=== PATIENT | female | born 1995 | race Caucasian/White ===

== ENCOUNTER 2020-01-15 23:30 | Observation (INO) | payer MEDICAID, SELFPAY ==
--- NOTE | 2020-01-15 23:32 | PC.NURSE ---
pt arrived by pov with complaint of abdominal cramping for 4 hours-states she thinks she is in labor. thinks she lost her mucus plug-ob called and is aware of pt. taken to ob in wheelchair
[2020-01-16 00:01] VITALS: BP 142/74; PULSE 88
--- NOTE | 2020-01-16 00:05 | OBADM ---
This patient, Eugenie Tamayo, admitted to the OB room OB Post 115 for observation. Patient/family oriented to hospital policies and general routines including ID bracelet, bed and alarms, visiting hours, pain management, procedures, bathroom and other care routines, personal items, smoking policy, room service/diet, and visiting hours. Patient/Family are encouraged to report perceived risks to care and to ask questions if they do not understand what they are told or what they should do.
[2020-01-16 00:16] VITALS: BP 144/75; PULSE 94
[2020-01-16 00:31] VITALS: BP 136/71; PULSE 89
[2020-01-16 00:46] VITALS: BP 136/73; PULSE 89
[2020-01-16 01:19] LABS: Add Urine Microscopic? YES; Appearance Urine Clear (Clear); Bacteria Urine Trace /hpf; Bilirubin Urine Negative (Negative); Blood Urine Negative (Negative); Color Urine Yellow (Yellow); Glucose Urine UA Negative (Negative); Ketones Urine Negative (Negative); Leukocyte Esterase Ur Negative LEU/UL (NEGATIVE); Mucus Urine Heavy /lpf; Nitrate Urine Negative (Negative); Protein Urine 1+ mg/dL (Negative); RBC Urine 0-2 /hpf (0-2); Specific Grav Ur 1.018 (1.001-1.035); Squamous Epithelial Cell Urine Occasional /hpf (Few); WBC Urine 0-3 /hpf (0-3)
[2020-01-16 01:41] LABS: Basophils Absolute Auto 0.1 K/mm3 (0.0-0.1); Basophils Percent Auto 0.3 % (0.2-1.2); Eosinophils Absolute Auto 0.2 K/mm3 (0-0.3); Eosinophils Percent Auto 1.1 % (0-4.4); Hematocrit 33.8 % (37.0-47.0); Hemoglobin 10.9 g/dL (12.0-15.0); Immature Granulocyte Absolute 0.15 K/mm3 (0.00-0.031); Lymphocytes Absolute Auto 1.96 K/mm3 (0.9-3.2); Lymphocytes Percent Auto 13.4 % (18.3-44.2); Mean Corpuscular HGB Conc 32.2 g/dl (32-36); Mean Corpuscular Hemoglobin 28.8 pg (26-34); Mean Corpuscular Volume 89.2 fl (80-100); Mean Platelet Volume 10.3 fl (7.4-10.4); Monocytes Absolute Auto 0.7 K/mm3 (0.1-0.6); Monocytes Percent Auto 4.8 % (2.6-8.5); Neutrophils Absolute Auto 11.6 K/mm3 (1.3-6.7); Neutrophils Percent Auto 79.4 % (45.5-73.1); Platelet Count Result 250 k/mm3 (150-375); Red Blood Count 3.79 M/mm3 (4.2-5.4); Red Cell Distribution Width 13.2 % (11.5-14.5); White Blood Count 14.6 K/mm3 (4.5-10.0)
[2020-01-16 02:03] LABS: NT Pro B Type Natriuretic Pept 50 PG/ML (5-100)
[2020-01-16 02:17] LABS: Blood Urea Nitrogen 5 mg/dL (7-17); Carbon Dioxide 22 mmol/L (22-30); Chloride 104 mmol/L (98-107); Estimated Glomerular Filt Rate > 60; Glucose 93 mg/dL (65-105); Potassium 3.9 mmol/L (3.4-5.0); Sodium 133 mmol/L (137-145)
--- NOTE | 2020-02-11 09:00 | PM.OBTRLD ---
OB - Triage/Final Diagnosis Visit Information Comments/Additional reasons for admission: rule out rupture of membranes Evaluation Laboratory results: Laboratory Tests 01/16/20 01/16/20 01/16/20 01:03 01:30 01:30 WBC 14.6 H RBC 3.79 L Hgb 10.9 L Hct 33.8 L MCV 89.2 MCH 28.8 MCHC 32.2 RDW 13.2 Plt Count 250 MPV 10.3 Immature Gran % (Auto) 1.0 H Neut % (Auto) 79.4 H Lymph % (Auto) 13.4 L [place] % (Auto) 4.8 Eos % (Auto) 1.1 Baso % (Auto) 0.3 Lymph # (Auto) 1.96 [place] # (Auto) 0.7 H Eos # (Auto) 0.2 Baso # (Auto) 0.1 Abs Immat Gran (auto) 0.15 H Absolute Neuts (auto) 11.6 H Absolute Nucleated RBC 0.0 Nucleated RBC % 0.0 Sodium Potassium Chloride Carbon Dioxide BUN Creatinine Estim Creat Clear Calc Estimated GFR Glucose Calcium NT-Pro-B Natriuret Pep 50 Urine Color Yellow Urine Appearance Clear Urine pH 6.0 Ur Specific [place] 1.018 Urine Protein 1+ H Urine Glucose (UA) Negative Urine Ketones Negative Ur Blood (Man) Negative Urine Nitrate Negative Urine Bilirubin Negative Urine Urobilinogen 2.0 H Ur Leukocyte Esterase Negative Urine RBC 0-2 Urine WBC 0-3 Ur Squamous Epith Cells Occasional Urine Bacteria Trace Urine Mucus Heavy H 01/16/20 01:30 WBC RBC Hgb Hct MCV MCH MCHC RDW Plt Count MPV Immature Gran % (Auto) Neut % (Auto) Lymph % (Auto) [place] % (Auto) Eos % (Auto) Baso % (Auto) Lymph # (Auto) [place] # (Auto) Eos # (Auto) Baso # (Auto) Abs Immat Gran (auto) Absolute Neuts (auto) Absolute Nucleated RBC Nucleated RBC % Sodium 133 L Potassium 3.9 Chloride 104 Carbon Dioxide 22 BUN 5 L Creatinine 0.50 L Estim Creat Clear Calc Not Reportable Estimated GFR > 60 Glucose 93 Calcium 9.0 NT-Pro-B Natriuret Pep Urine Color Urine Appearance Urine pH Ur Specific [place] Urine Protein Urine Glucose (UA) Urine Ketones Ur Blood (Man) Urine Nitrate Urine Bilirubin Urine Urobilinogen Ur Leukocyte Esterase Urine RBC Urine WBC Ur Squamous Epith Cells Urine Bacteria Urine Mucus
== END 2020-01-16 02:34 | disposition home or self-care (01) ==
PROVIDERS: Admitting Provider Obstetrics & Gynecology; Visit Provider Obstetrics & Gynecology
DX: Z03.79 Encounter for other suspected maternal and fetal conditions ruled out (principal)
CPT/HCPCS: 36415; 80048; 81001; 83880; 85025; G0378; G0379

== ENCOUNTER 2020-01-17 05:46 | Outpatient (CLI) | payer MEDICAID, SELFPAY ==
[2020-01-17 06:17] VITALS: BMI 43.0
[2020-01-17 07:00] LABS: Creatinine Urine 99.4 mg/dL
[2020-01-17 07:06] LABS: Creatinine 24 Hour Urine 1.4 gm/24 (0.8-1.8); Total Volume 24 Hour Urine 1500 ml
[2020-01-17 07:16] LABS: Collection Time Urine 24 HOURS
[2020-01-17 07:19] LABS: Total Volume 24 Hour Urine 1500 ml
[2020-01-17 07:29] LABS: Creatinine Clearance Urine 174.7 ml/min (75-125); Creatinine Urine 98.9 mg/dL; Patient Weight 235 Lbs; Total Protein Urine 24 Hr 165 MG/DAY (28-141); Total Protein Urine Random 11 mg/dL
== END 2020-01-17 05:47 | disposition home or self-care (01) ==
PROVIDERS: Visit Provider Obstetrics & Gynecology
DX: O13.9 Gestational [pregnancy-induced] hypertension without significant proteinuria, unspecified trimester (principal); Z3A.00 Weeks of gestation of pregnancy not specified
CPT/HCPCS: 81050; 82570; 82575; 84156

== ENCOUNTER 2020-01-18 12:42 | Outpatient (RCR) | payer MEDICAID, SELFPAY ==
[2020-01-18] MEDS: RHO(D) IMMUNE GLOBULIN 300 MCG SYRINGE IM (18:04)
== END 2020-04-17 23:59 | disposition home or self-care (01) ==
LOC: ANHLAB 12:42
PROVIDERS: Visit Provider Obstetrics & Gynecology
DX: Z29.13 Encounter for prophylactic Rho(D) immune globulin (principal); O36.0930 Maternal care for other rhesus isoimmunization, third trimester, not applicable or unspecified; Z3A.29 29 weeks gestation of pregnancy
CPT/HCPCS: 36415; 86900; 86901; 90384; 96372; J2790

== ENCOUNTER 2020-01-19 17:28 | Outpatient (CLI) | payer MEDICAID, SELFPAY ==
[2020-01-19 18:01] VITALS: BP 127/68; PULSE 96
--- NOTE | 2020-01-19 18:13 | PC.NURSE ---
Notified Dr. Brown of patient negative ROM plus results, FHT and maternal assessment. No contractions noted via TOCO monitoring. VSS. Discharge orders given.
[2020-01-19 18:16] VITALS: BP 129/66; PULSE 100
== END 2020-01-19 18:20 | disposition home or self-care (01) ==
LOC: ANHOBOP 17:36 → ANHOBPP 17:39
PROVIDERS: Visit Provider Obstetrics & Gynecology
DX: O41.8X90 Other specified disorders of amniotic fluid and membranes, unspecified trimester, not applicable or unspecified (principal)
CPT/HCPCS: 84112; 99199

== ENCOUNTER 2020-02-17 16:33 | Outpatient (RCR) | payer OTHER, SELFPAY ==
[2020-02-10 17:25] VITALS: BP 128/69; PULSE 97
--- NOTE | ~2020-02-17 | US_ITS ---
EXAMINATION: US OB BPP wo non-stress DATE: 02/17/2020 18:26 INDICATION: Biophysical profile. Third trimester. TECHNIQUE: Real-time pelvic ultrasound was performed. COMPARISON: None. FINDINGS: There is a single living fetus in vertex presentation. The placenta is posterior. heart rate i s 131 beats per minute (bpm). Biophysical profile performed by the technologist: breathing (30 sec sustained breathing in 30 minutes): 0 out of 2 movement (3 gross body movements in 30 minutes): 2 out of 2 tone (one episode of jamoell-tdfjkumud-dskwbvy limb movement): 2 out of 2 Amniotic fluid pocket (2 cm): 2 out of 2 Total score: 6 out of 8 IMPRESSION: 1. Single living fetus in vertex presentation. 2. Biophysical profile 6 out of 8. Reviewed, dictated and finalized at location A.
[2020-02-17 17:59] VITALS: BP 138/81; PULSE 93
--- NOTE | 2020-02-17 18:17 | PC.NURSE ---
1745 Pt transferred to radiology for US
[2020-02-17 19:05] VITALS: BP 137/81; PULSE 97
== END 2020-03-20 08:03 | disposition home or self-care (01) ==
LOC: ANHOBOP 16:33
PROVIDERS: Family Provider Obstetrics & Gynecology; Visit Provider Obstetrics & Gynecology
DX: O10.013 Pre-existing essential hypertension complicating pregnancy, third trimester (principal); Z3A.32 32 weeks gestation of pregnancy; Z3A.34 34 weeks gestation of pregnancy
CPT/HCPCS: 59025; 76819

== ENCOUNTER 2020-03-07 21:50 | Observation (INO) | payer OTHER, SELFPAY ==
[2020-03-07 22:08] VITALS: BP 146/87; PULSE 102
[2020-03-07 22:14] VITALS: BMI 43.1
--- NOTE | 2020-03-07 22:14 | OBADM ---
This patient, Eugenie Tamayo, admitted to the OB room Labor/Delivery/Recovery 118 for observation. Patient/family oriented to hospital policies and general routines including ID bracelet, bed and alarms, visiting hours, pain management, procedures, bathroom and other care routines, personal items, smoking policy, room service/diet, and visiting hours. Patient/Family are encouraged to report perceived risks to care and to ask questions if they do not understand what they are told or what they should do.
[2020-03-07 22:16] VITALS: BP 136/80; PULSE 97
[2020-03-07 22:26] LABS: Add Urine Microscopic? YES; Appearance Urine Cloudy (Clear); Bacteria Urine 1+ /hpf; Bilirubin Urine Negative (Negative); Blood Urine Negative (Negative); Color Urine Yellow (Yellow); Glucose Urine UA Negative (Negative); Ketones Urine Negative (Negative); Leukocyte Esterase Ur Trace LEU/UL (Negative); Mucus Urine Rare /lpf; Nitrate Urine Negative (Negative); Protein Urine Negative (Negative); RBC Urine 0-2 /hpf (0-2); Specific Grav Ur 1.013 (1.001-1.035); Squamous Epithelial Cell Urine Few /hpf (Few); Urobilinogen Urine Negative mg/dL (<2.0); WBC Urine 0-3 /hpf
[2020-03-07 22:31] VITALS: BP 131/72; PULSE 101
--- NOTE | 2020-03-17 09:19 | P.PNOB_ITS ---
OB - Triage/Final Diagnosis Evaluation Laboratory results: Laboratory Tests 03/07/20 22:10 Urine Color Yellow Urine Appearance Cloudy H Urine pH 7.0 Ur Specific [place] 1.013 Urine Protein Negative Urine Glucose (UA) Negative Urine Ketones Negative Ur Blood (Man) Negative Urine Nitrate Negative Urine Bilirubin Negative Urine Urobilinogen Negative Leukocyte Esterase Rfl Trace H Urine RBC 0-2 Urine WBC 0-3 Ur Squamous Epith Cells Few Urine Bacteria 1+ H Urine Mucus Rare
--- NOTE | 2020-03-28 09:19 | P.PNOB_ITS ---
OB - Triage/Final Diagnosis Evaluation Laboratory results: Laboratory Tests 03/07/20 22:10 Urine Color Yellow Urine Appearance Cloudy H Urine pH 7.0 Ur Specific [place] 1.013 Urine Protein Negative Urine Glucose (UA) Negative Urine Ketones Negative Ur Blood (Man) Negative Urine Nitrate Negative Urine Bilirubin Negative Urine Urobilinogen Negative Leukocyte Esterase Rfl Trace H Urine RBC 0-2 Urine WBC 0-3 Ur Squamous Epith Cells Few Urine Bacteria 1+ H Urine Mucus Rare
--- NOTE | 2020-03-31 14:21 | PM.OBTRLD ---
OB - Triage/Final Diagnosis Visit Information Reason for evaluation: other ([facility]TN and ) Evaluation Laboratory results: Laboratory Tests 03/07/20 22:10 Urine Color Yellow Urine Appearance Cloudy H Urine pH 7.0 Ur Specific [place] 1.013 Urine Protein Negative Urine Glucose (UA) Negative Urine Ketones Negative Ur Blood (Man) Negative Urine Nitrate Negative Urine Bilirubin Negative Urine Urobilinogen Negative Leukocyte Esterase Rfl Trace H Urine RBC 0-2 Urine WBC 0-3 Ur Squamous Epith Cells Few Urine Bacteria 1+ H Urine Mucus Rare
== END 2020-03-07 22:50 | disposition home or self-care (01) ==
PROVIDERS: Admitting Provider Obstetrics & Gynecology; Visit Provider Obstetrics & Gynecology
DX: O16.3 Unspecified maternal hypertension, third trimester (principal); Z3A.35 35 weeks gestation of pregnancy
CPT/HCPCS: 81001; G0378; G0379

== ENCOUNTER 2020-03-15 18:03 | Inpatient (IN) | payer OTHER, SELFPAY ==
[2020-03-15 19:46] VITALS: BP 135/69; PULSE 96
[2020-03-15] MEDS: DINOPROSTONE 10 MG VAG INSERT VAGINAL (19:51)
[2020-03-15 20:03] VITALS: BP 143/76; PULSE 106
[2020-03-15 20:07] LABS: Basophils Percent Auto 0.2 % (0.2-1.2); Eosinophils Absolute Auto 0.2 K/mm3 (0-0.3); Eosinophils Percent Auto 1.2 % (0-4.4); Hematocrit 33.5 % (37.0-47.0); Hemoglobin 11.2 g/dL (12.0-15.0); Immature Granulocyte Absolute 0.18 K/mm3 (0.00-0.031); Immature Granulocyte Percent A 1.3 % (0-0.5); Lymphocytes Absolute Auto 1.48 K/mm3 (0.9-3.2); Lymphocytes Percent Auto 10.8 % (18.3-44.2); Mean Corpuscular HGB Conc 33.4 g/dl (32-36); Mean Corpuscular Hemoglobin 29.1 pg (26-34); Mean Platelet Volume 10.5 fl (7.4-10.4); Monocytes Absolute Auto 0.6 K/mm3 (0.1-0.6); Monocytes Percent Auto 4.3 % (2.6-8.5); Neutrophils Absolute Auto 11.2 K/mm3 (1.3-6.7); Neutrophils Percent Auto 82.2 % (45.5-73.1); Platelet Count Result 269 k/mm3 (150-375); Red Blood Count 3.85 M/mm3 (4.2-5.4); Red Cell Distribution Width 13.5 % (11.5-14.5); White Blood Count 13.7 K/mm3 (4.5-10.0)
[2020-03-15 20:11] VITALS: TEMP 36.4
[2020-03-15 20:20] LABS: Alanine Aminotransferase 11 U/L (4-35); Albumin Level 3.5 g/dL (3.5-5.1); Alkaline Phosphatase 114 U/L (38-126); Aspartate Amino Transferase 15 U/L (14-36); Bilirubin,Total 0.3 mg/dL (0.2-1.3); Blood Urea Nitrogen 6 mg/dL (7-17); Calcium 8.8 mg/dL (8.4-10.2); Carbon Dioxide 21 mmol/L (22-30); Chloride 104 mmol/L (98-107); Estimated Glomerular Filt Rate > 60; Glucose 110 mg/dL (65-105); Potassium 3.9 mmol/L (3.4-5.0); Sodium 133 mmol/L (137-145); Uric Acid 3.2 mg/dL (2.5-7.5)
--- NOTE | 2020-03-15 20:28 | LDADM ---
This patient, Eugenie Tamayo, was admitted to Labor/Delivery/Recovery 108 on 03/15/20 at 18:03. Plans for labor, pain management and were discussed with patient. Patient/family oriented to hospital policies and general routines including ID bracelet, bed and alarms, visiting hours, pain management, procedures, bathroom and other care routines, personal items, smoking policy, room service/diet and guest tray routines, security routines, and visiting hours. Patient/Family are encouraged to report perceived risks to care and to ask questions if they do not understand what they are told or what they should do. See OBIX for further documentation.
[2020-03-15 20:30] VITALS: BP 142/73; PULSE 103
[2020-03-15 21:00] VITALS: BP 144/89; PULSE 101
[2020-03-15 21:00] LABS: HIV 1/2 Ab P24 Ag Result Negative (Negative)
[2020-03-15 21:30] VITALS: BP 120/67; PULSE 93
--- NOTE | 2020-03-15 23:54 | WPDANESEPP ---
Anes - Eval Pre Procedure Procedure: Labor epidural Date/Time: 03/15/20 23:54 Surgeon: freddie Preop Diagnosis: pain during labor Pre Op Diagnosis: Induction of Labor Patient Data Age: 24 Gender: F Height: Weight: Last Vital Signs Temp 36.4 C 03/15/20 20:11 Pulse 93 03/15/20 21:30 BP 120/67 03/15/20 21:30 Allergies Allergy/AdvReac Type Severity Reaction Status Date / Time bee venom protein (honey bee) Allergy Hives Verified 03/06/20 12:40 [bees] shellfish derived Allergy Swelling Verified 03/06/20 12:40 of Lip/Tongue/Throat Home Medications Medication Instructions Recorded Confirmed Type labetalol 200 mg PO TID 01/16/20 03/07/20 History PNV cmb#95-ferrous fumarate-FA 1 tablet PO DAILY 03/06/20 03/07/20 History [] aspirin [Aspirin Low Dose] 81 mg PO DAILY 03/06/20 03/07/20 History Laboratory Tests 03/15/20 03/15/20 03/15/20 19:39 19:39 19:39 WBC 13.7 K/mm3 H K/mm3 (4.5-10.0) RBC 3.85 M/mm3 L M/mm3 (4.2-5.4) Hgb 11.2 g/dL L g/dL (12.0-15.0) Hct 33.5 % L % (37.0-47.0) MCV 87.0 fl fl (80-100) MCH 29.1 pg pg (26-34) MCHC 33.4 g/dl g/dl (32-36) RDW 13.5 % % (11.5-14.5) Plt Count 269 k/mm3 k/mm3 (150-375) MPV 10.5 fl H fl (7.4-10.4) Immature Gran % (Auto) 1.3 % H % (0-0.5) Neut % (Auto) 82.2 % H % (45.5-73.1) Lymph % (Auto) 10.8 % L % (18.3-44.2) [place] % (Auto) 4.3 % % (2.6-8.5) Eos % (Auto) 1.2 % % (0-4.4) Baso % (Auto) 0.2 % % (0.2-1.2) Lymph # (Auto) 1.48 K/mm3 K/mm3 (0.9-3.2) [place] # (Auto) 0.6 K/mm3 K/mm3 (0.1-0.6) Eos # (Auto) 0.2 K/mm3 K/mm3 (0-0.3) Baso # (Auto) 0.0 K/mm3 K/mm3 (0.0-0.1) Abs Immat Gran (auto) 0.18 K/mm3 H K/mm3 (0.00-0.031) Absolute Neuts (auto) 11.2 K/mm3 H K/mm3 (1.3-6.7) Absolute Nucleated RBC 0.0 K/mm3 K/mm3 (0.0-0.012) Nucleated RBC % 0.0 % % (0.0-0.2) Sodium Potassium Chloride Carbon Dioxide BUN Creatinine Estim Creat Clear Calc Estimated GFR Glucose Uric Acid 3.2 mg/dL mg/dL (2.5-7.5) Calcium Total Bilirubin AST ALT Alkaline Phosphatase Total Protein Albumin RPR HIV 1&2 Ab/P24 Ag 4thGn Negative (Negative) Blood Type Antibody Screen Antibody Identification Antigen Identification ISABELL, IgG Interpret ISABELL, Poly Interpret ISABELL, Complement Interp 03/15/20 03/15/20 03/15/20 19:39 19:39 19:39 WBC RBC Hgb Hct MCV MCH MCHC RDW Plt Count MPV Immature Gran % (Auto) Neut % (Auto) Lymph % (Auto) [place] % (Auto) Eos % (Auto) Baso % (Auto) Lymph # (Auto) [place] # (Auto) Eos # (Auto) Baso # (Auto) Abs Immat Gran (auto) Absolute Neuts (auto) Absolute Nucleated RBC Nucleated RBC % Sodium 133 mmol/L L mmol/L (137-145) Potassium 3.9 mmol/L mmol/L (3.4-5.0) Chloride 104 mmol/L mmol/L (98-107) Carbon Dioxide 21 mmol/L L mmol/L (22-30) BUN 6 mg/dL L mg/dL (7-17) Creatinine 0.50 mg/dL L mg/dL (0.7-1.0) Estim Creat Clear Calc Not Reportable Estimated GFR > 60 (59 - ) Glucose 110 mg/dL H mg/dL (65-105) Uric Acid Calcium 8.8 mg/dL mg/dL (8.4-10.2)
[2020-03-16] VITALS (126 sets, daily range): BP systolic 102–146; BP diastolic 46–96; PULSE 67–102; RESP 20; TEMP 36.1–36.9; O2SAT 97–100; BMI 43.9
[2020-03-16] MEDS: FAMOTIDINE 20 MG/2 ML VIAL IV PUSH (03:21)
[2020-03-16] MEDS: LABETALOL HCL 100 MG TABLET 200 MG PO ×2 (07:55→16:58)
[2020-03-16] MEDS: LACTATED RINGERS 1,000 ML 125 ML IV CONT ×2 (09:16→19:31)
[2020-03-16] MEDS: MISOPROSTOL 25 MCG TABLET VAGINAL ×2 (09:21→13:09)
[2020-03-16 11:25] LABS: Rapid Plasma Reagin Non-Reactive (NonReactive)
--- NOTE | 2020-03-16 16:51 | WPDOBADMIT ---
Obstetrics - Admit Note Admission Note: record reviewed. Pertinent additions to the history and/or any subsequent changes in the physical findings that are not consistent with the expected course of the were found. Additions to the history and/or subsequent changes in the physical findings follow. 24 yo comes to L & D for IOL at 37 weeks 1 days, confirmed by [facility] of 04/05/2020 for CHTN controlled on meds , Morbid obesity, smoker, transfer of care at 30 weeks. s/p cervidil x 1 and cytotec x 2. AROM performed, clear fluid. IUPC placed without difficulty status reassuring. Expectant managament of labor.
[2020-03-16] MEDS: OXYTOCIN 30 UNITS/NS 500 ML 30 UNITS/500 ML BAG 6 UNITS IV CONT ×2 (16:58→20:03)
[2020-03-16] MEDS: LABETALOL HCL 100 MG TABLET PO (22:16)
[2020-03-17] VITALS (187 sets, daily range): BP systolic 91–142; BP diastolic 42–88; PULSE 76–105; RESP 17–20; TEMP 36.4–37.4; O2SAT 95–100
[2020-03-17] MEDS: LACTATED RINGERS 1,000 ML 125 ML IV CONT ×3 (02:23→09:02)
[2020-03-17] MEDS: SODIUM CHLORIDE 0.9% IV 300 ML 600 ML I-UTERINE (02:53)
[2020-03-17] MEDS: LABETALOL HCL 100 MG TABLET 200 MG PO ×3 (06:14→22:44)
--- NOTE | 2020-03-17 08:11 | PM.OBPNLAB ---
Pain Control Date/time seen: 03/17/20 08:11 Pain control: epidural Pelvic Exam Dilation (cm): 5 Effacement (%): 90 station: -1 Amniotic membrane status: Ruptured Comments: Per nurse Contractions Monitor mode: Internal (IUPC) Contraction frequency: 2 Contraction pattern: Regular Status status: Category ll Assessment and Plan Comments: Pt in left lateral position, due to late decleration .Pitocin stopped. oxygen started. Minimal cervical changes overnight Will proceed with Primary CD for failure to descent.
--- NOTE | 2020-03-17 08:15 | PM.OBPNLAB ---
Pain Control Date/time seen: 03/17/20 08:15 Pelvic Exam Dilation (cm): 5 Effacement (%): 90 station: -1 Amniotic membrane status: Ruptured Contractions Monitor mode: Internal (IUPC) Contraction frequency: 2 Contraction pattern: Regular Status status: Category ll Assessment and Plan Plan: Comments: Pt in left lateral position due to late deceleration. Pitocin stopped.Oxygen started Will proceed with primary Cd for failure to decent and NRFHT. Discussed procedure in detail as well as risk of procedure i.e infection, bleeding may require BT which pt agrees, injury to bowel/bladder and adjacent structure, anesthesia risk can be life threatening. pt vocied verbalized. All question answered.
[2020-03-17] MEDS: ceFAZolin 2 GM/D5W 50 ML 2 GM/50 ML BAG IVPB (08:38)
--- NOTE | 2020-03-17 09:06 | WPDANESEFPP ---
Anes - Eval Final PreProcedure Day of Procedure 03/17/20 09:06 Patient weight: morbidly obese Heart: regular rate and rhythm Lungs: clear to auscultation and normal air movement Airway: Mallampati scale class II Neurological: alert and oriented Last oral intake: >/= 8 hours ASA classification: III Emergent: no Anesthetic plan: proceed Anesthesia type and monitoring: regional epidural Informed Consent: The patient's anesthetic plan and its attendant risks and benefits were discussed with the patient/family/POA. Questions were solicited and answers provided to the satisfaction of the patient/family/POA.
--- NOTE | 2020-03-17 09:09 | PM.IMHP ---
H&P: HPI History of Present Illness Chief complaint: Induction of Labor Narrative: Eugenie Tamayo is a 24 year old female comes to L & D at 37 weeks 1 day on 03/15/2020 for IOL due to CHTN controlled on meds, morbid obese,Smoker, transfer of care at 30 weeks. Pt had cervidil x 1, cytotec x 2. and Had AROM aroud 5 pm on 03/16/2020 with clear fluid. Received epidural and comfortable. Had IUPC with adequate ctxns and failure to progress. Cervical dilation 5.5/90/-1 per nurse around 8 am today.When came for evaluation today, noticed late decerleration on monitor. and went to pt room. Pt in left lateral position, with oxygen and pitocin stopped. As due to failure to progress and NRFHT , will proceed with primary CD.Discusse procedure in detail as well as risk of procedure i.e infection, bleeding may require BT which pt agrees, injury to bowel/bladder and adjacent struture, anesthesia risk, can be life threatening. Pt as well as FOb voiced verbalized. All question answered. Also informed pt small chances of for transitional respiratory issue. Review of Systems Constitutional: Constitutional: Reports no additional constitutional complaints Cardiovascular: Cardiovascular: Reports no additional cardiovascular complaints Respiratory: Respiratory: Reports no additional respiratory complaints Gastrointestinal: Gastrointestinal: Reports no additional gastrointestinal complaints Genitourinary: Genitourinary: Reports no additional female genitourinary complaints [facility] Past Medical History Medical History (Updated 03/17/20 @ 09:19 by Magda Thakur MD) HTN (hypertension) Family History Family History (Updated 03/06/20 @ 12:46 by Unique Arias RN) Grandparent Heart disease Chronic obstructive pulmonary disease Diabetes mellitus Father Epilepsia Mother Chronic obstructive pulmonary disease Social History Social History Smoking packs per day: 0.5 Smoking cigarettes per day: 10.0 Years smoked: 3 Smoking pack-years: 1.50 Smoking status: Current every day smoker Tobacco type: cigarettes Substance use: never Spiritual care concerns: No Meds Home Medications and Allergies Home Medications Medication Instructions Recorded Confirmed Type labetalol 200 mg PO TID 01/16/20 03/16/20 History PNV cmb#95-ferrous fumarate-FA 1 tablet PO DAILY 03/06/20 03/16/20 History [] aspirin [Aspirin Low Dose] 81 mg PO DAILY 03/06/20 03/16/20 History ferrous sulfate 325 mg PO DAILY 03/16/20 03/16/20 History Allergies Allergy/AdvReac Type Severity Reaction Status Date / Time bee venom protein (honey bee) Allergy Hives Verified 03/06/20 12:40 [bees] shellfish derived Allergy Swelling Verified 03/06/20 12:40 of Lip/Tongue/Throat Vital Signs Vital Signs - 24 hr 03/16/20 09:26 03/16/20 09:30 03/16/20 10:00 Temperature 36.5 C Pulse Rate 94 93 85 Blood Pressure 125/59 L 121/62 120/65 Pulse Oximetry 03/16/20 10:30 03/16/20 11:00 03/16/20 11:30 Temperature 36.2 C L 36.3 C L Pulse Rate 89 85 Blood Pressure 109/56 L 123/70 Pulse Oximetry 03/16/20 13:16 03/16/20 13:30 03/16/20 14:00 Temperature Pulse Rate 86 84 84 Blood Pressure 128/75 140/64 137/72 Pulse Oximetry 03/16/20 14:30 03/16/20 15:00 03/16/20 16:58 Temperature Pulse Rate 78 73 68 Blood Pressure 141/69 H 132/96 H Pulse Oximetry 03/16/20 17:00 03/16/20 17:03 03/16/20 17:30 Temperature 36.9 C Pulse Rate 81 91 Blood Pressure 124/78 134/80 Pulse Oximetry 03/16/20 18:00 03/16/20 18:30 03/16/20 18:33 Temperature Pulse Rate 88 95 Blood Pressure 144/69 H 140/79 Pulse Oximetry 97 03/16/20 18:35 03/16/20 18:38 03/16/20 18:40 Temperature Pulse Rate 94 91 Blood Pressure 142/87 H 125/80 Pulse Oximetry 97 97 03/16/20 18:42 03/16/20 18:45 03/16/20 18:47 Temperature Pulse Rate 96 91 81 Blood Pressure 146/81 H 136/81 129/68 Pulse Oximet
--- NOTE | 2020-03-17 10:27 | PM.OBPRVD ---
OB - Delivery Note Procedure Delivery date: 03/17/20 Procedure: Procedures Operation Date: 03/17/20 09:30 Actual Procedures Side Surgeon p Section Magda Thakur MD events: Labor Induction (CHTN, morbid obese) Intrapartal events: Failure to Progress in Labor Induction method: per misoprostol protocol, per pitocin protocol and other (cervidil) Delivery monitor: external FHT and internal uterine Route of delivery: (for failure to progress and NRFHT) Specimen: Yes (cord blood, gases, placenta) Estimated blood loss (mL): 785 Anesthesia type: Epidural Disposition: PACU Complications: None Baby Date of : 03/17/20 Weeks of gestation at delivery: 37 gender: Female Weight (pounds): 6 Weight (ounces): 10 presentation: vertex position: Left Occiput Transverse Placenta delivery description: Manual Removal cord vessel description: 3 Vessels and Nuchal Cord (x 1) score one minute: 9 score five minutes: 9
--- NOTE | 2020-03-17 10:30 | PM.OBDSVD ---
DS: Diagnosis Discharge Diagnosis (1) HTN (hypertension): Code(s): I10 - Essential (primary) hypertension Status: Acute OB - DS: Summary Hospital Course Time spent discussing smoking cessation with patient: 3 to 10 minutes OB Procedures : NST and Ultrasound OB Procedures Intrapartum: OB Procedures: : None Peripartum Data Infant Delivery Method: Section Procedures: Procedures Operation Date: 03/17/20 09:30 Actual Procedures Side Surgeon p Section Magda Thakur MD complications: none Time Spent with Patient Time attestation: Total time spent providing and/or coordinating discharge services: DS: Data Data Completed and Pending Pending studies at discharge: Pending at discharge 03/17/20 09:40 Surgical [PTH] Routine Labs on day of discharge: Labs from last 24 hours 03/15/20 19:39 RPR Non-reactive Discharge Plan Discharge Attending physician on discharge: Magda Thakur Consulting providers: Wayne Espinosa Discharging Clinician: Jamarcus Brown Patient Disposition: Home, Self-Care Activity: as tolerated and pelvic rest Diet: regular Wound Care Instructions: follow printed instructions and incision open to air Discharge Instructions: Education: Mom and Baby Guide Given to: Mother Follow-Up: Call your delivering provider's office for an appointment to be seen in: 1 Week Mom and baby should come to the [facility] for the follow-up appointment. Appointment Date/Time: March 22, 2020 at 9:00 am What to expect at your follow-up visit: Blood Pressure Check Physical Assessment Call [phone] if you are unable to keep your appointment time. BREAST CARE: 1. Wear a snug supportive bra. 2. For engorgement discomfort: Breast Feeding: A. Apply warm moist washcloths B. Express milk as needed to relieve engorgement C. Wear loose clothing Bottle Feeding: A. May apply ice packs 3. For sore nipples: A. Identify correct latch-on B. Apply warm moist washcloths before and after nursing C. Air dry nipples after nursing D. May apply Lansinoh cream to nipples ABDOMINAL INCISION: (if applicable) 1. Allow incision to air dry 2. Do NOT use lotions for powders on your incision 3. When showering, allow soap and water to run over the incision, but do not wash incision EPISIOTOMY/PERINEAL CARE: 1. Until bleeding stops, use your valeria bottle after urinating 2. Change your pad frequently throughout the day 3. No tub baths until seen by your physician - You may shower ACTIVITY: 1. Rest as much as possible. 2. Do not exercise or lift anything heavier than your baby (such as laundry or other children.) 3. Avoid stairs or driving as much as possible. 4. Do not put anything into the vagina. No douching, tampons, or sexual activity until seen by physician. NOTIFY PHYSICIAN IF YOU HAVE ANY QUESTIONS OR IF ANY OF THE FOLLOWING SYMPTOMS OCCUR: 1. If your incision becomes red, swollen, or more painful than what you have experienced in the hospital. 2. If your vaginal bleeding becomes foul smelling. 3. If your vaginal bleeding becomes more heavy than a period or if your bleeding changes from pink to bright red. However, you may pass an occasional walnut-sized clot once or twice for the first week . 4. If you experience a sharp, shooting pain in you calves. 5. If you discover a hard, reddened area on your breast or if you experience flu-like symptoms. DIET: 1. Eat regular, well-balanced meals. 2. Drink plenty of fluids daily. If , drink to thirst. Patient Instructions: Antibiotic Form, How to Stop Smoking (ED) Stand Alone Forms: General Discharge Information Follow-up/Referrals: Magda Thakur MD [Physician] - Discharge Medications: New hydrocodone-acetamin
--- NOTE | 2020-03-17 10:35 | PM.PROC ---
Procedure Note - Detailed Date of procedure: 03/17/20 Pre-op diagnosis: Induction of Labor Procedure performed: Primary CD Description of procedure: After informing the risk of the procedure that is infection, bleeding which may require blood transfusion, injury to bowel or bladder or adjacent structure, anesthesia risk, can be life-threatening, and risk of for respiratory issue, patient voiced verbalized and all questions answered the patient was taken to the OR. Patient was given a dorsal supine position. Anesthesia was instituted thru epidural. Patient was prepped and draped in normal sterile fashion. Patient received antibiotic as per protocol. Time-out was performed. Anesthesia was checked and was adequate. A Pfannenstiel skin incision was made 2 cm above the pubic symphysis with scalpel and carried to the underlying layer of fascia. Fascia was incised in midline and extended laterally with the help of bovie and Ross scissors. Superior aspect of the fascial incision was grasped with the Se clamps and elevated and underlying rectus muscle dissected off bluntly. Similarly the inferior aspect of the fascial incision was grasped with the Se clamps elevated and underlying rectus muscle dissected off bluntly. Rectus muscles in the midline and the peritoneum identified and the peritoneal cavity entered bluntly. Peritoneal incision was extended superiorly inferiorly with good visualization of bladder. Aron retractor was placed to 1st bladder blade was placed for the 2nd twin peritoneum was identified and a bladder flap was created digitally. Bladder blade reinserted. A transverse incision was then made on the lower uterine segment and extended laterally with the help of the Bandage scissors. head was delivered atraumatically with that left occiput transverse position prepped umbilical cord x1 was noted which was easily reduced 1st following head the anterior shoulder posterior shoulder and rest of the torso was delivered 1st nose and mouth were suctioned and cord was clamped and infant handed to waiting Nurses. cord blood and gases then connected. placenta removed manually. Uterus exteriorized and cleared of blood clot. Uterine incision was approximated with 0 Polysorb in a running locked fashion. There was a small extension noted at the right side of the uterine incision inferiorly each was approximated with 0 Polysorb in a running locked fashion . 2nd imbricating layer was performed with 0 Polysorb on the uterine incision. Excellent hemostasis was noted at the [place] uterine incisions closed posterior cul-de-sac was cleared of blood clots. Uterus entered into the abdomen. Lateral gutters cleared blood clots for 1 more time excellent hemostasis noted on the lower uterine incision site. Vesico-uterine peritoneum was approximated with 2 -0Polysorb. all the instrument and the Aron retractor was removed from the abdomen. The peritoneum was approximated with 3-0 Polysorb. Fascia was approximated with 0 Polysorb. Subcu layer was approximated with Schueler Polysorb. Skin was closed with Biosyn and Dermabond. Patient tolerated procedure well sponge lap needle counts correct x2. Patient taken to the recovery room awake in stable condition. and to Nursery. Anesthesia: GETA and epidural Surgeon: Magda Thakur MD Estimated blood loss (mL): 785 IV fluids (mL): 1,000 Urine output (mL): 250 (clear) Drains: Yes (Burns) Packing: No Pathology: yes (placenta) Complications: No immediate complications Condition: stable Disposition: PACU Findings: A viable term female with 9/9 Apgars and 6 lb 10 oz wt delivered via vertex presentation. Nuchal cord x 1, easily released. Placenta removed manually. Normal uterus , tubes and ovaries.
[2020-03-17] MEDS: OXYTOCIN 30 UNITS/NS 500 ML 30 UNITS/500 ML BAG 125 UNITS IV CONT (11:40)
--- NOTE | 2020-03-17 13:05 | OBPPTRN ---
Patient transferred to post room # 281 via stretcher. Support person present. Oriented to unit, room, information board, rooming in, admission packet and security measures. Patient verbalizes understanding.
--- NOTE | 2020-03-17 13:35 | PC.NURSE ---
Consulted with patient, mother reports infant eagerly fed at first feeding. Reviewed feeding cues, frequencies, duration of feedings, feeding elimination flow sheet, and signs of adequate intake. Demonstrated stimulation techniques to wake for feeding. Assisted with to breast. Reviewed positioning/alignment in football, holding breast in C hold and guided asymmetrical latch on. Several attempts before was able to latch correctly due to tongue up and not allowing a deep latch. was able to latch correctly. Infant nursed eagerly, with steady draws and frequent swallowing noted. Reviewed signs of a correct latch, effective nursing and suck swallow ratio. Infant was able to maintain latch without discomfort to mother. Nipple care reviewed. Instructed mother to call out for RN assistance if she is unable to latch for feeding or she has discomfort with nursing. Instructed feeding should be initiated three hours from start of last feeding or if feeding cues are noted before. Mother voiced understanding of information shared.
[2020-03-17] MEDS: KETOROLAC 30 MG/ML VIAL (*BKC) IV PUSH (15:28)
[2020-03-17] MEDS: DEXTROSE 5%/0.45% SOD CHL 1,000 ML 125 ML IV CONT (16:27)
--- NOTE | 2020-03-17 16:42 | PC.NURSE ---
Demonstrated stimulation techniques to wake infant for feeding. Assisted with to breast. Several attempts made infant is sleepy advised skin to skin and attempt again in 30 minutes.
[2020-03-18] MEDS: KETOROLAC 30 MG/ML VIAL (*BKC) IV PUSH (04:27)
[2020-03-18 05:38] VITALS: BP 141/76; PULSE 93; RESP 17; TEMP 37.1
[2020-03-18 06:09] LABS: Basophils Percent Auto 0.2 % (0.2-1.2); Eosinophils Absolute Auto 0.1 K/mm3 (0-0.3); Eosinophils Percent Auto 0.6 % (0-4.4); Hematocrit 30.2 % (37.0-47.0); Hemoglobin 9.7 g/dL (12.0-15.0); Immature Granulocyte Absolute 0.13 K/mm3 (0.00-0.031); Immature Granulocyte Percent A 0.8 % (0-0.5); Lymphocytes Absolute Auto 1.09 K/mm3 (0.9-3.2); Lymphocytes Percent Auto 6.4 % (18.3-44.2); Mean Corpuscular HGB Conc 32.1 g/dl (32-36); Mean Corpuscular Hemoglobin 28.5 pg (26-34); Mean Corpuscular Volume 88.8 fl (80-100); Mean Platelet Volume 10.5 fl (7.4-10.4); Monocytes Absolute Auto 0.8 K/mm3 (0.1-0.6); Monocytes Percent Auto 4.4 % (2.6-8.5); Neutrophils Absolute Auto 14.9 K/mm3 (1.3-6.7); Neutrophils Percent Auto 87.6 % (45.5-73.1); Platelet Count Result 222 k/mm3 (150-375); Red Cell Distribution Width 13.8 % (11.5-14.5)
[2020-03-18 06:48] VITALS: PULSE 86
[2020-03-18] MEDS: LABETALOL HCL 100 MG TABLET 200 MG PO ×3 (06:48→22:24)
--- NOTE | 2020-03-18 06:58 | WPDANLDNPN2 ---
Anes-Prog Note L&D-Neuraxial Date/Time: 03/18/20 06:58 Neuraxial medications: intrathecal PF morphine Opiod-related complaints: none Patient feedback: Patient satisfied with post-operative pain management.
[2020-03-18 06:59] VITALS: BP 121/70; PULSE 86; RESP 16; TEMP 36.8
--- NOTE | 2020-03-18 07:01 | WPDANLDPN2 ---
Anes-Prog Note L&D Date/Time: 03/18/20 07:01 Comfortable throughout: section Neuraxial method: spinal Epidural/Spinal procedure site: clean & non-tender Neuro status: Neuro function grossly intact. Cardiovascular status: normal Respiratory status: normal Airway patency: baseline Mental status: baseline Post-Op hydration status: normal Vital Signs: Last Vital Signs Temp 37.1 C 03/18/20 05:38 Pulse 86 03/18/20 06:48 Resp 17 03/18/20 05:38 BP 141/76 H 03/18/20 05:38 Pulse Ox 100 03/17/20 17:21 I/O: Intake & Output 03/17/20 03/17/20 03/18/20 15:59 23:59 07:59 Intake Total 2350 500 1700 Output Total 1535 2000 Balance 815 500 -300 Post-procedural complaints: none Patient feedback: Patient satisfied with anesthetic care.
[2020-03-18] MEDS: POLYSACCHARIDE IRON COMPLEX 150 MG CAPSULE PO ×2 (08:46→16:39)
[2020-03-18] MEDS: DOCUSATE SODIUM 100 MG CAPSULE PO ×2 (08:46→16:39)
[2020-03-18] MEDS: MULTIVIT/MIN/PREN/FOL AC/IRON TABLET 1 TAB PO (08:46)
--- NOTE | 2020-03-18 11:52 | P.PNOB_ITS ---
OB - PN: Subj Subjective Date/time seen: 03/18/20 11:52 S: doing well Patient comments: incisional pain, tolerating diet and flatus present Broad Top feeding status: pumping and bottle feeding OB - PN: Obj Data Labs CBC & Chem 7: 03/18/20 05:50 03/15/20 19:39 Labs: Laboratory Results - last 24 hr 03/18/20 05:50 WBC 17.0 H RBC 3.40 L Hgb 9.7 L Hct 30.2 L MCV 88.8 MCH 28.5 MCHC 32.1 RDW 13.8 Plt Count 222 MPV 10.5 H Immature Gran % (Auto) 0.8 H Neut % (Auto) 87.6 H Lymph % (Auto) 6.4 L [place] % (Auto) 4.4 Eos % (Auto) 0.6 Baso % (Auto) 0.2 Lymph # (Auto) 1.09 [place] # (Auto) 0.8 H Eos # (Auto) 0.1 Baso # (Auto) 0.0 Abs Immat Gran (auto) 0.13 H Absolute Neuts (auto) 14.9 H Absolute Nucleated RBC 0.0 Nucleated RBC % 0.0 OB - PN A/P Assessment and Plan (1) S/P : Code(s): Z98.891 - History of uterine scar from previous surgery Status: Acute Assessment and Plan: continue with post op care doing well no comp;aints considering home in am if baby doing well and pain controlled. Time Spent With Patient Time: Total time spent is greater than 50% in coordination of care (as documented) at patient's floor/unit and/or counseling patient: Exam Narrative: Exam Narrative: incision bandage present. patient to remove in shower today
[2020-03-18] MEDS: IBUPROFEN 600 MG TABLET PO ×2 (13:02→20:14)
[2020-03-18 14:44] VITALS: PULSE 90
[2020-03-18 20:16] VITALS: BP 134/79; PULSE 97; RESP 17; TEMP 37
[2020-03-18 22:24] VITALS: PULSE 88
--- NOTE | 2020-03-19 01:32 | PC.NURSE ---
Pt and significant other viewed the discharge video and has expressed no questions at this time.
[2020-03-19] MEDS: IBUPROFEN 600 MG TABLET PO ×3 (03:11→18:00)
[2020-03-19 06:06] VITALS: PULSE 84
[2020-03-19] MEDS: LABETALOL HCL 100 MG TABLET 200 MG PO ×3 (06:06→22:18)
[2020-03-19] MEDS: POLYSACCHARIDE IRON COMPLEX 150 MG CAPSULE PO ×2 (07:13→17:21)
[2020-03-19] MEDS: MULTIVIT/MIN/PREN/FOL AC/IRON TABLET 1 TAB PO (07:13)
[2020-03-19] MEDS: DOCUSATE SODIUM 100 MG CAPSULE PO ×2 (07:14→17:21)
[2020-03-19 07:15] VITALS: BP 130/75; PULSE 89; RESP 16; TEMP 36.4; O2SAT 99
--- NOTE | 2020-03-19 07:30 | PM.OBPNVD ---
OB - PN: Subj Subjective Date/time seen: 03/19/20 07:30 doing okay baby needs bili lights pain controlled bleeding less OB - PN: Obj Data Labs CBC & Chem 7: 03/18/20 05:50 03/15/20 19:39 OB - PN A/P Assessment and Plan (1) S/P : Code(s): Z98.891 - History of uterine scar from previous surgery Status: Acute Assessment and Plan: continue with post op care. Time Spent With Patient Time: Total time spent is greater than 50% in coordination of care (as documented) at patient's floor/unit and/or counseling patient: Exam GI: Other: incision clean dry and intact
--- NOTE | 2020-03-19 08:45 | PC.NURSE ---
Patient viewed the discharge video Mother & Baby Care, The First Two Weeks . Patient was given the opportunity and encouraged to ask questions. Patient verbalized understanding of information shared and has been given the mother/baby guide for home reference.
[2020-03-19 14:26] VITALS: PULSE 90
[2020-03-19 19:00] VITALS: BP 134/69; PULSE 97; RESP 16; TEMP 36.8
[2020-03-20] MEDS: IBUPROFEN 600 MG TABLET PO ×3 (00:24→14:46)
[2020-03-20] MEDS: DOCUSATE SODIUM 100 MG CAPSULE PO (06:38)
[2020-03-20] MEDS: SIMETHICONE 80 MG TAB.CHEW PO (06:39)
[2020-03-20] MEDS: MULTIVIT/MIN/PREN/FOL AC/IRON TABLET 1 TAB PO (06:39)
[2020-03-20 06:40] VITALS: PULSE 90
[2020-03-20] MEDS: LABETALOL HCL 100 MG TABLET 200 MG PO ×2 (06:40→14:46)
[2020-03-20] MEDS: POLYSACCHARIDE IRON COMPLEX 150 MG CAPSULE PO (06:40)
[2020-03-20 07:30] VITALS: BP 145/83; PULSE 96; RESP 18; TEMP 36.6
--- NOTE | 2020-03-20 08:45 | PC.NURSE ---
Consult with pt., mother state she is bottle feeding at this time due to jaundice. Mother has been set up to pump and is not pumping regularly. Reviewed breast stimulation and milk supply. Mother reports her goal is to go home and breastfeed once the jaundice has resolved. Suggested mother initiate regular pumping. Instructions given on breast pump care and usage, pumping schedule, nipple care, and collection and storage of breast milk. Encouraged [id number], breast massage and manual expression to stimulate supply. Pumping log provided and reviewed. Assessed patient for correct flange size, placement and draw. Patient verbalizes and demonstrates understanding of instructions. Offered assist with to breast next feeding. Mother reports will not remained latch because her milk is not in. Suggested to give a few mls of formula then switch to breast. Mother would prefer to wait until her milk is in. Mother is feeding as required and waking to feed if needed. Infant is currently meeting outcomes for weight, output, jaundice and feeding frequencies. Mother states she feels confident to continue current feeding plan at home. Reviewed transition to breast milk, signs of adequate intake, and engorgement/relief. Instructed to call ICP if intake/output less than required. Reviewed regular medications mother is taking. Information provided per Nisha. Reviewed community resources on the [facility] website and in the Mom/Baby guide. Information on outpatient services provided. Mother has no further questions at this time.
--- NOTE | 2020-03-20 13:00 | PC.NURSE ---
Self care and infant care discharge instructions given along with feeding plan. Went over feeding plan with pt. who then verbalized understanding. No further questions or concerns voiced. FOB at side.
[2020-03-20 14:45] VITALS: BP 155/83; PULSE 115
[2020-03-20 14:46] VITALS: PULSE 115
[2020-03-22 09:03] VITALS: BP 122/81; PULSE 93; RESP 20; TEMP 37.4; O2SAT 99
== END 2020-03-20 15:56 | disposition home or self-care (01) | DRG 540 ==
LOC: ANHLDR 03-17 10:32 → ANHOB2 03-20 10:11 → ANHLDR 03-22 12:17 → ANHOB2 03-22 12:17
PROVIDERS: Admitting Provider Obstetrics & Gynecology; Visit Provider Obstetrics & Gynecology
PROC: 10D00Z1 Extraction of Products of Conception, Low, Open Approach (ICD-10-PCS; CPT 59514; principal; 2020-03-17 09:30)
DX: O10.92 Unspecified pre-existing hypertension complicating childbirth (principal); Z3A.37 37 weeks gestation of pregnancy; Z37.0 Single live birth; Z23 Encounter for immunization; O76 Abnormality in fetal heart rate and rhythm complicating labor and delivery; F17.210 Nicotine dependence, cigarettes, uncomplicated; E66.01 Morbid (severe) obesity due to excess calories; O99.214 Obesity complicating childbirth; O69.81X0 Labor and delivery complicated by cord around neck, without compression, not applicable or unspecified; Z3A.00 Weeks of gestation of pregnancy not specified; O64.8XX0 Obstructed labor due to other malposition and malpresentation, not applicable or unspecified; O99.334 Smoking (tobacco) complicating childbirth
CPT/HCPCS: 36415; 80053; 84550; 85025; 86592; 86703; 86850; 86880; 86900; 86901; 86902; 88307; A9270; G0432; J0131; J0690; J1885; J2274; J2590; J2795; J7030; J7120

== ENCOUNTER 2020-04-21 14:38 | Emergency (ER) | payer OTHER, SELFPAY ==
[2020-04-21 14:46] VITALS: BP 168/100; PULSE 104; RESP 17; TEMP 36.6; O2SAT 100
--- NOTE | 2020-04-21 16:19 | ED.FEMALEGU ---
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 She has passed clots and today soaked 2 pads in 2 hours. Bleeding has since subsided. She gave by 1 month ago. No weakness, dizziness, SOB Related Data Home Medications Medication Instructions Recorded Confirmed labetalol 200 mg PO TID 01/16/20 03/16/20 PNV cmb#95-ferrous fumarate-FA 1 tablet PO DAILY 03/06/20 03/16/20 [] ferrous sulfate 325 mg PO DAILY 03/16/20 03/16/20 Allergies Allergy/AdvReac Type Severity Reaction Status Date / Time bee venom protein (honey bee) Allergy Hives Verified 03/06/20 12:40 [bees] shellfish derived Allergy Swelling Verified 03/06/20 12:40 of Lip/Tongue/Throat Review of Systems Review of Systems: All systems reviewed & are unremarkable except as noted in HPI and below Constitutional: Constitutional: Denies chills Respiratory: Respiratory: Denies dyspnea Gastrointestinal: Gastrointestinal: Denies abdominal pain, Denies nausea and Denies vomiting Genitourinary: Genitourinary: Denies hematuria, Denies dysuria and Denies pelvic pain Neurologic: Denies weakness PMFSH Past Medical History Medical History HTN (hypertension) Surgical History Surgical History S/P Family History Family History Grandparent Heart disease Chronic obstructive pulmonary disease Diabetes mellitus Father Epilepsia Mother Chronic obstructive pulmonary disease Social History Social History Smoking packs per day: 0.5 Smoking cigarettes per day: 10.0 Years smoked: 3 Smoking pack-years: 1.50 Smoking status: Current every day smoker Tobacco type: cigarettes Substance use: never Gender identity (if verbalized by the patient): Female Spiritual care concerns: No Exam Const: General: healthy appearing, no acute distress and alert Orientation/consciousness: patient oriented x3 HENMT: Head: normal to inspection Neck: Neck: normal visual inspection and no lymphadenopathy Chest: Chest palpation & inspection: no tenderness Resp: Effort & Inspection: normal respiratory effort Auscultation: clear to auscultation bilaterally, no rales, no rhonchi and no wheezes Cardio: Jugular venous distension: no JVD Rate: regular rate Rhythm: regular rhythm Heart sounds: no murmurs GI: Inspection: non-distended GI Palp: Yes Soft to palpation and No Tenderness to palpation present (GI) : External Female Exam: normal external appearance Speculum Exam - Vagina: vaginal bleeding (mild) Skin: General skin exam: normal color Neuro: General: patient oriented x3 and moves all extremities Speech: normal speech Extrem: General: no edema Psych: Appearance: well kempt Affect: normal affect Course Vital Signs Vital signs: Vital Signs Temperature 36.6 C 04/21/20 14:46 Pulse Rate 104 H 04/21/20 14:46 Respiratory Rate 17 04/21/20 14:46 Blood Pressure 168/100 H 04/21/20 14:46 Pulse Oximetry 100 04/21/20 14:46 Temperature 36.6 C 04/21/20 14:46 Pulse Rate 92 04/21/20 16:44 Respiratory Rate 17 04/21/20 14:46 Blood Pressure 142/81 H 04/21/20 16:44 Pulse Oximetry 100 04/21/20 14:46 MDM - Female Genitourinary MDM Narrative Medical decision making narrative: Bleeding mild. Case discussed with Dr. Thakur. She recommends reassurance and discharge with bleeding precautions. Lab Data Result diagrams: 04/21/20 16:32 Labs: Lab Results 04/21/20 04/21/20 04/21/20 Range/Units 16:32 16:32 16:32 WBC 10.5 H (4.5-10.0) K/mm3 RBC 4.31 (4.2-5.4) M/mm3
[2020-04-21 16:39] VITALS: BP 137/83; PULSE 77
[2020-04-21 16:40] LABS: Basophils Percent Auto 0.4 % (0.2-1.2); Eosinophils Absolute Auto 0.4 K/mm3 (0-0.3); Eosinophils Percent Auto 3.5 % (0-4.4); Hematocrit 37.4 % (37.0-47.0); Immature Granulocyte Absolute 0.03 K/mm3 (0.00-0.031); Immature Granulocyte Percent A 0.3 % (0-0.5); Lymphocytes Absolute Auto 2.18 K/mm3 (0.9-3.2); Lymphocytes Percent Auto 20.8 % (18.3-44.2); Mean Corpuscular HGB Conc 32.1 g/dl (32-36); Mean Corpuscular Hemoglobin 27.8 pg (26-34); Mean Corpuscular Volume 86.8 fl (80-100); Mean Platelet Volume 9.8 fl (7.4-10.4); Monocytes Absolute Auto 0.5 K/mm3 (0.1-0.6); Monocytes Percent Auto 4.4 % (2.6-8.5); Neutrophils Absolute Auto 7.4 K/mm3 (1.3-6.7); Neutrophils Percent Auto 70.6 % (45.5-73.1); Platelet Count Result 310 k/mm3 (150-375); Red Blood Count 4.31 M/mm3 (4.2-5.4); Red Cell Distribution Width 13.3 % (11.5-14.5); White Blood Count 10.5 K/mm3 (4.5-10.0)
[2020-04-21 16:43] VITALS: BP 133/79; PULSE 85
[2020-04-21 16:44] VITALS: BP 142/81; PULSE 92
[2020-04-21 16:50] LABS: Prothrombin Time 12.7 Seconds (11.1-14.7)
[2020-04-21 16:51] LABS: Partial Thromboplastin Time 27.5 SECONDS (22.3-36.8)
== END 2020-04-21 18:07 | disposition home or self-care (01) ==
PROVIDERS: Physician Assistant; Emergency Provider Emergency Medicine
DX: O72.2 Delayed and secondary postpartum hemorrhage (principal); O10.93 Unspecified pre-existing hypertension complicating the puerperium; O99.335 Smoking (tobacco) complicating the puerperium; F17.210 Nicotine dependence, cigarettes, uncomplicated
CPT/HCPCS: 36415; 85025; 85610; 85730; 86850; 86900; 86901; 99284

== ENCOUNTER 2021-10-19 04:10 | Emergency (ER) | payer OTHER, SELFPAY ==
[2021-10-19] VITALS (7 sets, daily range): BP systolic 149–208; BP diastolic 91–132; PULSE 67–95; RESP 16–26; TEMP 36.2–36.4; O2SAT 98–100
--- NOTE | ~2021-10-19 | CT_ITS ---
EXAMINATION: CT abdomen pelvis w con INDICATION: Upper abdominal pain TECHNIQUE: Computed tomographic images of the abdomen and pelvis were obtained after the administrati on of 100 cc of Omnipaque 350 intravenous contrast. The dose-length product (DLP) was 1466.04 mGy-cm. Automated exposure control and iterative reconstruction technique were employed. COMPARISON: None available FINDINGS: The lung bases are clear. The heart size is normal. A punctate calcification of the otherwi se normal-appearing liver is consistent with old granulomatous disease. The spleen, pancreas, and adr enal glands are normal. A stone is present in the gallbladder which is mildly distended. There appear s to be mild wall thickening of the gallbladder. The kidneys are unremarkable. No pathologically enla rged abdominal or pelvic lymph nodes are identified. There is no free intraperitoneal gas or evidence of bowel obstruction. The appendix is normal. There is mild lumbar spondylosis. IMPRESSION: 1. Cholelithiasis and CT findings concerning for acute cholecystitis. Recommend correlation for right upper quadrant tenderness with follow-up ultrasound or nuclear hepatobiliary scan if indicated. These findings were communicated to the Emergency Department at 0558 hours on 10/19/2021 by the [facility] ad Radiologist. Reviewed, dictated and finalized at location A. PIT OPERATOR IMPRESSION: 1. Cholelithiasis and CT findings concerning for acute cholecystitis. Recommend correlation for right upper quadrant tenderness with follow-up ultrasound or n uclear hepatobiliary scan if indicated. These findings were communicated to the Emergency Department at 0558 hours on 12/19/2020 by the [facility] Radiologist.
--- NOTE | 2021-10-19 04:38 | ECG_ITS ---
Measurements Intervals [place] Rate: 86 P: 40 CO: 173 QRS: -12 QRSD: 82 T: 27 QT: 371 QTc: 445 Interpretive Statements SINUS RHYTHM POSSIBLE LEFT ATRIAL ENLARGEMENT BASELINE ARTIFACT- II, III, AVR, AVL, AVF, V1-V6 BORDERLINE ECG Electronically Signed On 10-19-2021 7:57:02 FITTING ROOM SUPERVISOR by Julien Guevara D.O.
[2021-10-19 04:41] LABS: Basophils Absolute Auto 0.1 K/mm3 (0.0-0.1); Basophils Percent Auto 0.6 % (0.2-1.2); Eosinophils Absolute Auto 0.5 K/mm3 (0-0.3); Hematocrit 41.3 % (37.0-47.0); Hemoglobin 13.9 g/dL (12.0-15.0); Immature Granulocyte Absolute 0.04 K/mm3 (0.00-0.031); Immature Granulocyte Percent A 0.3 % (0-0.5); Lymphocytes Absolute Auto 3.38 K/mm3 (0.9-3.2); Mean Corpuscular HGB Conc 33.7 g/dl (32-36); Mean Corpuscular Hemoglobin 28.7 pg (26-34); Mean Corpuscular Volume 85.2 fl (80-100); Monocytes Absolute Auto 0.7 K/mm3 (0.1-0.6); Monocytes Percent Auto 5.4 % (2.6-8.5); Neutrophils Absolute Auto 7.4 K/mm3 (1.3-6.7); Neutrophils Percent Auto 61.7 % (45.5-73.1); Platelet Count Result 280 k/mm3 (150-375); Red Blood Count 4.85 M/mm3 (4.2-5.4); Red Cell Distribution Width 12.4 % (11.5-14.5); White Blood Count 12.1 K/mm3 (4.5-10.0)
[2021-10-19] MEDS: ONDANSETRON INJ 4 MG/2 ML VIAL IV PUSH (04:45)
--- NOTE | 2021-10-19 04:47 | ED.ABDPAIN ---
HPI - Abdominal Pain General Chief Complaint: Abdominal Pain Stated Complaint: abd pain Time Seen by Provider: 10/19/21 04:13 Source: patient and RN notes reviewed Mode of arrival: ambulatory Limitations: no limitations History of Present Illness HPI narrative: This is 26 year old female who presents for evaluation of epigastric abdominal pain. She developed sudden onset patient 3 hours ago when she was cleaning up. Her pain is located in her upper abdomen and it radiates to her back. She states pain was so severe that she developed nausea and vomiting. She denies fever, chills or diarrhea. Denies similar pain in the past. She also denies history of gallbladder disease. Rates pain 09/02. She does reports history of hypertension but she does not have primary care provider. She is taking blood pressure medication that was prescribed by her OBGYN during her intermittently. Denies chest pain or shortness of breath. Related Data Allergies Allergy/AdvReac Type Severity Reaction Status Date / Time bee venom protein (honey bee) Allergy Hives Verified 10/19/21 04:27 [bees] shellfish derived Allergy Swelling Verified 10/19/21 04:27 of Lip/Tongue/Throat Review of Systems Review of Systems: All systems reviewed & are unremarkable except as noted in HPI and below PMFSH Past Medical History Medical History (Updated 10/19/21 @ 06:48 by Mary Lou Santamaria MD) HTN (hypertension) Surgical History Surgical History S/P Family History Family History Grandparent Heart disease Chronic obstructive pulmonary disease Diabetes mellitus Father Epilepsia Mother Chronic obstructive pulmonary disease Social History Social History Smoking packs per day: 0.5 Smoking cigarettes per day: 10.0 Years smoked: 3 Smoking pack-years: 1.50 Smoking status: Current every day smoker Tobacco type: cigarettes Substance use: never Gender identity (if verbalized by the patient): Female Spiritual care concerns: No Exam Const: General: alert Nutritional Appearance: obese Orientation/consciousness: patient oriented x3 Other: moderate distress due to pain Eyes: EOM: EOMs intact bilaterally Resp: Effort & Inspection: normal respiratory effort and no retractions Auscultation: clear to auscultation bilaterally Cardio: Rate: regular rate Rhythm: regular rhythm Heart sounds: no murmurs GI: GI Palp: Yes Soft to palpation, Yes Tenderness to palpation present (GI) (bilateral upper quadrant and epigastric), No Guarding due to palpation present (GI) and No Rigid due to palpation Auscultation: normal bowel sounds Skin: General skin exam: normal color Rashes: no rashes Neuro: General: patient oriented x3, moves all extremities and CN's II-XI intact bilaterally Psych: Mental Status: mental status grossly normal Affect: normal affect Course Reevaluation(s) Reevaluation #1: PAtient states her pain has completely resolved after IV acetaminophen and morphine. I discussed with patient this may be her gallbladder. I discussed options of admission vs outpatient treatment. After discussion she is comfortable with discharge home with follow up with DR. Harrington. I have discussed diet restrictions and return precautions. Date: 10/19/21 Time: 06:38 Consultations Consultation #1: I Discussed with Dr. Harrington patient's labs and CT. He states if patient's can tolerate it she can be discharged home for outpatient follow up regarding possible cholecystitis. Date: 10/19/21 Time: 06:25 Vital Signs Vital signs: Vital Signs Temperature 97.6 F 10/19/21 04:12 Pulse Rate 95 10/19/21 04:12 Respiratory Rate 20 10/19/21 04:12 Blood Pressure 208/132 H 10/19/21 04:12 Pulse Oximetry 98 10/19/21 04:12 Temperature 97.1
[2021-10-19] MEDS: MORPHINE SULFATE (*CRX) 4 MG/ML INJ IV PUSH (04:49)
[2021-10-19 04:53] LABS: Alanine Aminotransferase 38 U/L (4-35); Albumin Level 4.5 g/dL (3.5-5.1); Alkaline Phosphatase 88 U/L (38-126); Anion Gap 8 mmol/L (8-16); Aspartate Amino Transferase 26 U/L (14-36); Bilirubin,Total 0.4 mg/dL (0.2-1.3); Blood Urea Nitrogen 10 mg/dL (7-17); Calcium 9.3 mg/dL (8.4-10.2); Carbon Dioxide 25 mmol/L (22-30); Chloride 102 mmol/L (98-107); Estimated CRCL calculation 121 ml/min; Estimated Glomerular Filt Rate > 60; Glucose 109 mg/dL (65-110); Lipase 41 U/L (23-300); Potassium 3.7 mmol/L (3.4-5.0); Sodium 135 mmol/L (137-145)
[2021-10-19 04:55] LABS: Add Urine Microscopic? YES; Appearance Urine Cloudy (Clear); Bilirubin Urine Negative (Negative); Blood Urine Negative (Negative); Color Urine Yellow (Yellow); Glucose Urine UA Negative (Negative); Ketones Urine Negative (Negative); Leukocyte Esterase Ur Negative LEU/UL (Negative); Mucus Urine Few /lpf; Nitrate Urine Negative (Negative); Protein Urine 2+ mg/dL (Negative); Specific Grav Ur 1.021 (1.001-1.035); Squamous Epithelial Cell Urine Moderate /hpf (Few)
--- NOTE | 2021-10-19 04:55 | PC.NURSE ---
Pt to CT scan at this time.
--- NOTE | 2021-10-19 04:56 | PC.NURSE ---
Problem with scanner for Tylenol. Verified order with KITTY Quesada.
== END 2021-10-19 07:05 | disposition home or self-care (01) ==
PROVIDERS: Emergency Provider General Practice
DX: K80.10 Calculus of gallbladder with chronic cholecystitis without obstruction (principal); I10 Essential (primary) hypertension; F17.210 Nicotine dependence, cigarettes, uncomplicated; R94.31 Abnormal electrocardiogram [ECG] [EKG]
CPT/HCPCS: 36415; 74177; 80053; 81001; 81025; 83690; 85025; 87086; 93005; 96374; 96375; 99284; J0131; J2270; J2405; Q9967

== ENCOUNTER 2021-11-23 07:02 | Emergency (ER) | payer OTHER, SELFPAY ==
[2021-11-23] VITALS (18 sets, daily range): BP systolic 179–229; BP diastolic 102–134; PULSE 72–81; RESP 16–17; TEMP 36.7; O2SAT 98–100
--- NOTE | ~2021-11-23 | CT_ITS ---
EXAMINATION: CT abdomen pelvis w con DATE: 11/23/2021 09:04 INDICATION: Left upper quadrant abdominal pain. Nausea. TECHNIQUE: Computed tomography (CT) of the abdomen and pelvis was performed with 100 mL Omnipaque 350 intravenous contrast. Automated exposure control and iterative reconstruction technique were employe d. The dose-length product was 1309.70 mGy-cm. COMPARISON: CT abdomen and pelvis 10/19/2021 FINDINGS: The visualized portions of the lung bases are clear without pneumonia or pleural effusion. The heart size is normal. No pericardial effusion. A calcification in the liver is consistent with ol d granulomatous disease. The gallbladder is distended. Gallbladder wall thickening is noted. There is fat stranding adjacent to the gallbladder. The spleen, pancreas, adrenal glands, and kidneys are nor mal. There are no dilated loops of bowel. The appendix is normal. There are no pathologically enlarge d lymph nodes. There is no free intraperitoneal fluid. There is mild thoracic and lumbar spondylosis. IMPRESSION: 1. Distended gallbladder with gallbladder wall thickening and adjacent fat stranding suspicious for a cute cholecystitis. Reviewed, dictated and finalized at location A. NESS PROFESSOR IMPRESSION: 1. Distended gallbladder with gallbladder wall thickening and adjacent fat stra nding suspicious for acute cholecystitis.
--- NOTE | ~2021-11-23 | US_ITS ---
EXAMINATION: US abdomen limited DATE: 11/23/2021 07:55 INDICATION: Abdominal pain. TECHNIQUE: Multiple grayscale and Doppler ultrasound images of the abdomen were obtained. COMPARISON: CT abdomen and pelvis 10/19/2021 FINDINGS: The visualized portions of the head and body of the pancreas are normal. The liver is pennie l without focal lesion. There is normal flow in main portal vein. The gallbladder is normal in size. No gallstones or gallbladder wall thickening. There was no sonographic Estrada sign. The common duct i s normal and measures 4 mm. IMPRESSION: 1. Normal right upper quadrant ultrasound. The gallstones seen by CT on 10/19/2021 are not visualized . Reviewed, dictated and finalized at location A. SLATORS IMPRESSION: 1. Normal right upper quadrant ultrasound. The gallstones seen by CT on 021 are not visualized.
--- NOTE | 2021-11-23 07:32 | ED.GENADULT ---
HPI - General Adult General Chief complaint: Abdominal Pain Stated complaint: abdominal pain Time Seen by Provider: 11/23/21 07:22 Source: RN notes reviewed History of Present Illness HPI narrative: Patient presents emergency department from home for abdominal pain. Patient states pain began at approximately 430 this morning. Pain is located in the epigastric region radiates around to the left side of the abdomen to the back. Patient states is associated with nausea and vomiting. States she has a history of gallbladder problems and schedule get her gallbladder out by Dr. Harrington in 6 days. She states this pain feels similar to previous episodes and she took Vicodin at home. She denies any fevers or chills chest pain shortness of breath or any other symptoms Related Data Home Medications Medication Instructions Recorded Confirmed levonorgestrel-ethinyl estrad 1 tablet PO DAILY 11/21/21 11/21/21 [Vienva] Allergies Allergy/AdvReac Type Severity Reaction Status Date / Time bee venom protein (honey bee) Allergy Hives Verified 11/21/21 11:57 [bees] shellfish derived Allergy Swelling Verified 11/21/21 11:57 of Lip/Tongue/Throat Review of Systems Review of Systems: Gen.: Denies fevers or chills ENT: Denies congestion Respiratory: Denies shortness of breath or cough CV: Denies chest pain or palpitations GI: See HPI denies burning, urgency, frequency or hematuria Musculoskeletal: Denies back pain or muscle pain Neuro: Denies numbness, tingling, weakness or focal weakness Skin: Denies rash Except as documented, all other systems reviewed and negative PMF Past Medical History Medical History HTN (hypertension) Surgical History Surgical History History of tonsillectomy S/P Family History Family History Grandparent Heart disease Chronic obstructive pulmonary disease Diabetes mellitus Father Epilepsia Mother Chronic obstructive pulmonary disease Social History Social History Smoking packs per day: 1.5 Smoking cigarettes per day: 30.0 Years smoked: 3 Smoking pack-years: 4.50 Smoking status: Former smoker Tobacco type: e-cigarettes/vaping Smoking end date: 10/13/21 Additional smoking assessment comments: CURRENTLY VAPING, QUIT CIGARETTES IN SEPTEMBER Alcohol intake: current Alcohol use details: A COUPLE/YEAR Substance use: never Substance use type: does not use Gender identity (if verbalized by the patient): Female Spiritual care concerns: No Exam Narrative: APPEARANCE: No acute distress, nontoxic, resting in bed HEENT: Normocephalic, atraumatic, OMM RESPIRATORY: No respiratory distress, clear to auscultation bilaterally with no rhonchi wheezing or rales CARDIOVASCULAR: RRR s murmur ABDOMINAL: Soft nondistended tender palpation epigastric, right upper quadrant left upper quadrant no tenderness right lower quadrant left lower quadrant no rebound or guarding MUSCULOSKELETAl: Moves all extremities. No clubbing, cyanosis or edema. NEURO: Awake and alert. Following commands, speech normal, no focal deficits SKIN:: Warm, dry. Normal Color PSYCHIATRIC: Normal affect/mood Course Course Emergency Course: I discussed with patient her blood pressure she states that since she moved here she does not have a PCP she supposed be on lisinopril 10 mg daily but is only been taking it intermittently she has been spacing out trying to make it through she follows up with a PCP to get a new prescription Patient states abdominal pain is improved repeat abdominal edema soft mild tenderness right upper quadrant no surgical abdomen Discussed Dr. Pike presentation work-up. He requests I discussed with the patient if she feels comfortable juan
[2021-11-23] MEDS: SODIUM CHLORIDE 0.9% IV 1,000 ML 999 ML IV CONT (08:12)
[2021-11-23] MEDS: ONDANSETRON INJ 4 MG/2 ML VIAL IV PUSH (08:13)
[2021-11-23] MEDS: KETOROLAC 30 MG/ML VIAL (*BKC) IV PUSH (08:13)
[2021-11-23 08:28] LABS: Basophils Percent Auto 0.4 % (0.2-1.2); Eosinophils Absolute Auto 0.6 K/mm3 (0-0.3); Eosinophils Percent Auto 6.3 % (0-4.4); Hematocrit 40.4 % (37.0-47.0); Hemoglobin 13.8 g/dL (12.0-15.0); Immature Granulocyte Absolute 0.03 K/mm3 (0.00-0.031); Immature Granulocyte Percent A 0.3 % (0-0.5); Lymphocytes Absolute Auto 2.65 K/mm3 (0.9-3.2); Mean Corpuscular HGB Conc 34.2 g/dl (32-36); Mean Corpuscular Hemoglobin 29.2 pg (26-34); Mean Corpuscular Volume 85.4 fl (80-100); Monocytes Absolute Auto 0.5 K/mm3 (0.1-0.6); Monocytes Percent Auto 5.7 % (2.6-8.5); Neutrophils Absolute Auto 5.6 K/mm3 (1.3-6.7); Neutrophils Percent Auto 59.3 % (45.5-73.1); Platelet Count Result 274 k/mm3 (150-375); Red Blood Count 4.73 M/mm3 (4.2-5.4); White Blood Count 9.5 K/mm3 (4.5-10.0)
[2021-11-23 08:43] LABS: Alanine Aminotransferase 22 U/L (4-35); Albumin Level 4.4 g/dL (3.5-5.1); Alkaline Phosphatase 84 U/L (38-126); Anion Gap 9 mmol/L (8-16); Aspartate Amino Transferase 21 U/L (14-36); Bilirubin,Total 0.4 mg/dL (0.2-1.3); Blood Urea Nitrogen 13 mg/dL (7-17); Calcium 9.6 mg/dL (8.4-10.2); Carbon Dioxide 25 mmol/L (22-30); Chloride 102 mmol/L (98-107); Estimated CRCL calculation 120 ml/min; Estimated Glomerular Filt Rate > 60; Glucose 108 mg/dL (65-110); Lipase 46 U/L (23-300); Sodium 136 mmol/L (137-145)
[2021-11-23 08:55] LABS: Add Urine Microscopic? YES; Appearance Urine Cloudy (Clear); Bacteria Urine Trace /hpf; Bilirubin Urine Negative (Negative); Blood Urine 1+ (Negative); Color Urine Yellow (Yellow); Glucose Urine UA Negative (Negative); Ketones Urine Negative (Negative); Leukocyte Esterase Ur Trace LEU/UL (Negative); Mucus Urine Few /lpf; Nitrate Urine Negative (Negative); Protein Urine 1+ mg/dL (Negative); Specific Grav Ur 1.021 (1.001-1.035); Squamous Epithelial Cell Urine Many /hpf (Few); Urobilinogen Urine Negative mg/dL (<2.0)
[2021-11-23] MEDS: lisinopriL 10 MG TABLET PO (10:43)
[2021-11-23] MEDS: levoFLOXacin 750 MG TABLET PO (11:54)
== END 2021-11-23 12:05 | disposition home or self-care (01) ==
PROVIDERS: Emergency Provider Emergency Medicine
DX: K81.0 Acute cholecystitis (principal); I10 Essential (primary) hypertension; Z87.891 Personal history of nicotine dependence
CPT/HCPCS: 36415; 74177; 76705; 80053; 81001; 81025; 83690; 85025; 87086; 96361; 96374; 96375; 99284; A9270; J1885; J2405; J7030; Q9967

== ENCOUNTER 2021-11-26 11:43 | Outpatient (CLI) | payer OTHER, SELFPAY ==
[2021-11-26 12:53] LABS: Amylase 59 U/L (30-110)
== END 2021-11-26 11:44 | disposition home or self-care (01) ==
LOC: ANHSURGERY 11:46
PROVIDERS: Visit Provider Surgery
DX: K80.10 Calculus of gallbladder with chronic cholecystitis without obstruction (principal); Z01.818 Encounter for other preprocedural examination
CPT/HCPCS: 36415; 82150; 86850; 86900; 86901

== ENCOUNTER 2021-12-11 11:08 | Outpatient (CLI) | payer OTHER, SELFPAY | END 2021-12-11 11:09 | disposition home or self-care (01) | LOC: ANHSURGERY 11:11 | PROVIDERS: Visit Provider Surgery | DX: K80.10 Calculus of gallbladder with chronic cholecystitis without obstruction (principal); Z01.818 Encounter for other preprocedural examination | CPT/HCPCS: 36415; 86850; 86900; 86901 ==

== ENCOUNTER 2021-12-14 00:39 | Day surgery (SDC) | payer OTHER, SELFPAY ==
[2021-11-21 11:58] VITALS: BMI 39.4
--- NOTE | 2021-11-21 12:09 | PC.NURSE ---
Report to the Outpatient Waiting Room, entrance under the green pavilion located off [facility], at time 10:00 on date 11/29/21. OR Time: 12:00. - You will be asked a series of questions to screen for COVID 19 for your protection. - A mask is required within the hospital. - No visitors are allowed at this time. Patient visitors will be guided where to wait when not with patient. Preoperative COVID Testing Requirements: No COVID Test needed if: (proof is required; if not received patient will have Rapid Test prior to entry) - Patient has received COVID Vaccine at least 14 days prior to procedure date or - Patient has positive COVID test result within last 90 days of surgery date. COVID Test needed if above criteria is not met Patients may have clear liquids (water, carbonated beverages, clear teas, apple juice) until 3 hours prior to surgery (9:00) with a maximum of 20 ounces. - No food from midnight until time of surgery Take the following medications with a SIP of water the morning of surgery: CONTROL PILL Medications to discontinue per physician: N/A Date to take last dose: N/A Please no make-up, nail north korean, hairspray, perfume, deodorant, or body powder the day of surgery. No jewelry (including any body piercings) or valuables the day of surgery, leave them at home. Please take a shower or bath the night before, or the morning of, surgery with an antibacterial soap. Wear comfortable, loose fitting clothing. HIBICLENS SHOWER - Jewelry must be removed prior to entering the operating room. Rings and piercings that are not removed may be cut off. - The hospital will not accept responsibility for valuables. - Please leave all valuables, including medications, at home the day of surgery. If you are going home after surgery, a licensed otr van cdl truck driver must drive you home. - NO public transportation without another adult. - We recommend that an adult stay with you for 24 hours following discharge. - We also recommend that you do not drive, make important decision, drink alcoholic beverages, or take any drugs that were not prescribed by your health care provider for at least 24 hours after your discharge time. Follow any additional instructions given to you from your surgeon. Telephone instructions given to HOPE CARDENAS and asked if any additional questions and then verbalized understanding. Patient advised to call surgeon office or pre surgery nurse liaison [phone] if any additional questions.
--- NOTE | 2021-12-10 13:41 | PC.NURSE ---
Report to the Outpatient Waiting Room, entrance under the green pavilion located off [facility], at time __0600 on date _[id number]_. OR Time: ____. - You and your visitor will be asked a series of questions to screen for COVID 19 for your protection. - A mask is required within the hospital. - Only one visitor is allowed at this time. Patient visitors will be guided where to wait when not with patient. Preoperative COVID Testing Requirements: No COVID Test needed if: (proof is required; if not received patient will have Rapid Test prior to entry) - Patient has received COVID Vaccine at least 14 days prior to procedure date or - Patient has positive COVID test result within last 90 days of surgery date. COVID Test needed if above criteria is not met If not COVID vaccinated a COVID test must be conducted within 72 hours of surgery and patient is asked to isolate self from time of testing until procedure. You will go to the [facility] for your COVID testing. The [facility] site is located at the corner of [address] [facility]. You will only be called if COVID results are positive and your surgeon may reschedule your elective surgery date. Patients may have clear liquids (water, carbonated beverages, clear teas, apple juice) until 3 hours prior to surgery with a maximum of 20 ounces. - No food from midnight until time of surgery - Infants may have breast milk until 4 hours before surgery, formula 6 hours prior to surgery. - Children will be allowed to drink immediately following surgery. If applicable, please bring a bottle or sippy cup to assist with drinking. Juice, water, soda, and popsicles are readily available. For infants on formula, please bring formula the day of surgery. Pacifiers are allowed. Take the following medications with a SIP of water the morning of surgery: Medications to discontinue per physician Date to take last dose Please no make-up, nail mongolian, hairspray, perfume, deodorant, or body powder the day of surgery. No jewelry (including any body piercings) or valuables the day of surgery, leave them at home. Please take a shower or bath the night before, or the morning of, surgery with an antibacterial soap. Wear comfortable, loose fitting clothing. Children are encouraged to wear pajamas. - Jewelry must be removed prior to entering the operating room. Rings and piercings that are not removed may be cut off. - The hospital will not accept responsibility for valuables. - Please leave all valuables, including medications, at home the day of surgery. If you are going home after surgery, a licensed compressed air pile driver operator must drive you home. - NO public transportation without another adult. - We recommend that an adult stay with you for 24 hours following discharge. - We also recommend that you do not drive, make important decision, drink alcoholic beverages, or take any drugs that were not prescribed by your health care provider for at least 24 hours after your discharge time. For Pediatric surgeries, we recommend two adults accompany the child home (only one inside the building at this time). Follow any additional instructions given to you from your surgeon. Telephone instructions given to ____Patient and asked if any additional questions and then verbalized understanding. Patient advised to call surgeon office or pre surgery nurse liaison [phone] if any additional questions.
[2021-12-14] VITALS (9 sets, daily range): BP systolic 133–199; BP diastolic 78–101; PULSE 78–97; RESP 11–22; TEMP 36.2–36.6; O2SAT 99–100
[2021-12-14] MEDS: ACETAMINOPHEN 500 MG TABLET 1000 MG PO (06:58)
--- NOTE | 2021-12-14 07:09 | P.PNAN_ITS ---
Anes - Initial Pre Proc Eval Procedure: Operation Date: 12/14/21 07:30 Proposed Procedures p Laparoscopic Cholecystectomy - Jud Harrington MD Date/Time: 12/14/21 07:09 Surgeon: Jud Harrington MD Pre Op Diagnosis: Cholecystitis withi Stones Patient Data Age: 26 Gender: F Height: 1.63 m Weight: 104.33 kg Allergies Allergy/AdvReac Type Severity Reaction Status Date / Time bee venom protein (honey bee) Allergy Hives Verified 12/14/21 06:48 [bees] shellfish derived Allergy Swelling Verified 12/14/21 06:48 of Lip/Tongue/Throat Home Medications Medication Instructions Recorded Confirmed Type levonorgestrel-ethinyl estrad 1 tablet PO DAILY 11/21/21 12/14/21 History [Vienva] lisinopril 10 mg PO DAILY #20 tablet 11/23/21 12/14/21 Rx Patient hx anesthesia problems: none Family hx anesthesia problems: none Results Review: All pre-operative results and documents have been reviewed as part of the pre-operative evaluation. [facility] Past Medical History Medical History HTN (hypertension) Surgical History Surgical History History of tonsillectomy S/P Family History Family History Grandparent Heart disease Chronic obstructive pulmonary disease Diabetes mellitus Father Epilepsia Mother Chronic obstructive pulmonary disease Social History Social History Smoking packs per day: 1.5 Smoking cigarettes per day: 30.0 Years smoked: 3 Smoking pack-years: 4.50 Smoking status: Former smoker Tobacco type: e-cigarettes/vaping Smoking end date: 10/13/21 Additional smoking assessment comments: CURRENTLY VAPING, QUIT CIGARETTES IN SEPTEMBER Alcohol intake: current Alcohol use details: A COUPLE/YEAR Substance use: never Substance use type: does not use Living arrangements: with family Gender identity (if verbalized by the patient): Female Spiritual care concerns: No Anes - Eval Final PreProcedure Day of Procedure 12/14/21 07:09 Patient weight: morbidly obese Heart: regular rate and rhythm Lungs: clear to auscultation Airway: Mallampati scale Neurological: alert and oriented Last oral intake: >/= 8 hours ASA classification: III Emergent: no Anesthetic plan: proceed Anesthesia type and monitoring: general GIVS and standard monitoring Results Review: All pre-operative results and documents have been reviewed as part of the pre-operative evaluation. Informed Consent: The patient's anesthetic plan and its attendant risks and benefits were discussed with the patient/family/POA. Questions were solicited and answers provided to the satisfaction of the patient/family/POA.
--- NOTE | 2021-12-14 07:25 | PM.IMHP ---
H&P: HPI History of Present Illness Date/Time: 12/14/21 07:25 Ms Tamayo is a 26 year old female that presents to the office after a recent visit to [facility] ED on 10/19/21. Patient had a CT of the abdomen and pelvis that showed cholelithiasis and mild wall thicken of the gallbladder and mildly distended. Patient reports that she has been having RUQ abdominal pain intermittently for about a month that radiates to the back. She reports that she had a 19 months ago. Patient reports that her grandmother had to have her gallbladder removed when she was younger. Chief Complaint: chronic cholecystitis Review of Systems Review of Systems: All systems reviewed & are unremarkable except as noted in HPI and below PMFSH Past Medical History Medical History HTN (hypertension) Surgical History Surgical History History of tonsillectomy S/P Family History Family History Grandparent Heart disease Chronic obstructive pulmonary disease Diabetes mellitus Father Epilepsia Mother Chronic obstructive pulmonary disease Social History Social History Smoking packs per day: 1.5 Smoking cigarettes per day: 30.0 Years smoked: 3 Smoking pack-years: 4.50 Smoking status: Former smoker Tobacco type: e-cigarettes/vaping Smoking end date: 10/13/21 Additional smoking assessment comments: CURRENTLY VAPING, QUIT CIGARETTES IN SEPTEMBER Alcohol intake: current Alcohol use details: A COUPLE/YEAR Substance use: never Substance use type: does not use Living arrangements: with family Gender identity (if verbalized by the patient): Female Spiritual care concerns: No Meds Home Medications and Allergies Home Medications Medication Instructions Recorded Confirmed Type levonorgestrel-ethinyl estrad 1 tablet PO DAILY 11/21/21 12/14/21 History [Vienva] lisinopril 10 mg PO DAILY #20 tablet 11/23/21 12/14/21 Rx Allergies Allergy/AdvReac Type Severity Reaction Status Date / Time bee venom protein (honey bee) Allergy Hives Verified 12/14/21 06:48 [bees] shellfish derived Allergy Swelling Verified 12/14/21 06:48 of Lip/Tongue/Throat Exam Const: General: cooperative, comfortable, no acute distress, alert, awake and Physically active Nutritional Appearance: obese Orientation/consciousness: patient oriented x3 Limitations: no limitations Resp: Effort & Inspection: normal respiratory effort Auscultation: clear to auscultation bilaterally Cardio: Rate: regular rate Rhythm: regular rhythm GI: Inspection: normal to inspection and non-distended GI Palp: Yes Soft to palpation, No Tenderness to palpation present (GI), No Guarding due to palpation present (GI) and No Rigid due to palpation Assessment and Plan Assessment and plan (1) CCC (chronic calculous cholecystitis): Code(s): K80.10 - Calculus of gallbladder with chronic cholecystitis without obstruction Status: Acute Assessment and Plan: will setup for cholecystectomy today (2) HTN (hypertension): Code(s): I10 - Essential (primary) hypertension Status: Acute Assessment and Plan: mgmt per primary (3) BMI 40.0-44.9, adult: Code(s): Z68.41 - Body mass index [BMI] 40.0-44.9, adult Status: Acute Assessment and Plan: lifestyle modification (4) Smoker: Code(s): F17.200 - Nicotine dependence, unspecified, uncomplicated Status: Acute Assessment and Plan: quit cigarettes, now vaping
--- NOTE | 2021-12-14 07:27 | WPDHPUPDATE1 ---
History and Physical Update Update Date/Time: 12/14/21 07:27 History and Physical has been reviewed, including an updated exam of the patient. There are NO changes in the patient's condition. Risks, benefits, and alternatives have been discussed and questions answered. Patient agrees to proceed with procedure.
[2021-12-14] MEDS: LACTATED RINGERS 1,000 ML 30 ML IV CONT ×2 (07:28→08:58)
[2021-12-14] MEDS: ceFAZolin 2 GM/D5W 50 ML 2 GM/50 ML BAG IVPB (07:29)
[2021-12-14] MEDS: KETOROLAC 15 MG/ML VIAL (*BKC) IV PUSH (07:29)
[2021-12-14] MEDS: BUPIVACAINE/EPINEPHRINE 0.25% 10 ML VIAL 30 ML INFILTRATE (07:56)
--- NOTE | 2021-12-14 08:26 | W.PM.PROC2 ---
Procedure Note - Detailed Date of Procedure 12/14/21 Pre-op Diagnosis Cholecystitis withi Stones Post-op Diagnosis same Procedure Performed Laparoscopic cholecystectomy Surgeon Jud Harrington MD Anesthesia general Indications 26 y/o F c chronic cholecystitis, cholelithiasis Findings chronic cholecystitis, cholelithiasis Description of Procedure The patient was taken to the operating room placed in the supine position. After adequate induction of general anesthesia, the patient was prepped and draped in normal sterile fashion. A time-out was then performed to verify the patient's identity as well as the procedure being performed. I then made a 5 mm incision in the infraumbilical region. Through this, a Veress needle was placed into the peritoneal cavity and CO2 gas was then insufflated. After adequate pneumoperitoneum was achieved, the Veress needle was removed and a 5 mm optiview trocar was placed through this incision under direct visualization. I then placed the laparoscope through this trocar site and under direct visualization placed a further 12 mm subxiphoid port as well as 2 additional 5 mm ports in the right upper abdomen. The gallbladder was then identified and was noted to be moderately inflamed, distended, and full of gallstones. I was able to place a grasper at the dome of the gallbladder and this was retracted anterior and cephalad up over the liver. A 2nd retractor was then placed at the infundibulum and retracted laterally, this allowed visualization of the triangle of Calot. I then was able to visualize the cystic duct in its entirety from its proximal insertion into the gallbladder, to its distal junction with the common hepatic/common bile duct junction. At this point, I carefully skeletonized the proximal cystic duct with the [place] dissector. I then clipped and transected the proximal cystic duct. Next I visualized the cystic artery. Again the artery was skeletonized, clipped, and transected. I then used the Bovie cautery to take down the peritoneal attachments of the gallbladder off the liver bed. This was somewhat difficult given the amount of inflammation in the posterior space. Once the gallbladder specimen was completely detached, an endo-pouch was placed through the 12 mm port site. I then placed the gallbladder specimen into the Endo pouch and removed the endo-pouch from the 12 mm port site. The specimen will now be sent to pathology for further review. I then copiously irrigated the right upper quadrant. Hemostasis was noted in the liver bed, the clips were noted to be in good position on both the cystic duct stump and the cystic artery stump. No other pathology was noted in the right upper quadrant. I then moved the laparoscope to the subxiphoid port. No iatrogenic injury or other pathology was noted in the lower abdomen. I then closed the 12 mm trocar site under direct visualization using the Colin cone and 0 Vicryl suture. At this point, the abdomen was desufflated and all ports removed. All port sites were then closed with 4.O Monocryl subcuticular sutures. Dermabond was placed on each incision. The patient tolerated the procedure well, was extubated in the operating room postoperative and will be transferred to the recovery room in stable condition Estimated Blood Loss 20 Drains No Packing No Pathology yes Complications No immediate complications Condition stable Disposition PACU
[2021-12-14] MEDS: fentaNYL CITRATE INJ (*CRX) 100 MCG/2 ML VIAL 25 MCG IV PUSH ×4 (08:58→09:40)
[2021-12-14] MEDS: oxyCODONE HCL (*CRX) 5 MG TAB IR PO (09:52)
[2021-12-14] MEDS: hydrALAZINE HCL 20 MG/ML VIAL 5 MG IV PUSH (10:20)
== END 2021-12-14 10:45 | disposition home or self-care (01) ==
PROVIDERS: Visit Provider Surgery
PROC: 0FT44ZZ Resection of Gallbladder, Percutaneous Endoscopic Approach (ICD-10-PCS; CPT 47562; principal; 2021-12-14 07:30)
DX: K80.10 Calculus of gallbladder with chronic cholecystitis without obstruction (principal); R10.11 Right upper quadrant pain; I10 Essential (primary) hypertension; Z87.891 Personal history of nicotine dependence; E66.9 Obesity, unspecified; Z68.41 Body mass index [BMI] 40.0-44.9, adult
CPT/HCPCS: 47562; 88304; A9270; J0330; J0360; J0690; J1100; J1885; J2250; J2405; J2704; J2710; J3010; J7030; J7120

== ENCOUNTER 2022-03-15 14:08 | Outpatient (CLI) | payer OTHER, SELFPAY ==
--- NOTE | ~2022-03-15 | US_ITS ---
EXAMINATION: US pelvic complete w TV DATE: 03/15/2022 14:44 INDICATION: Amenorrhea TECHNIQUE: Multiple transabdominal and endovaginal sonographic images of the pelvis were obtained. COMPARISON: None. FINDINGS: The uterus measures 8.3 x 5.0 x 4.2 cm. A hypoechoic area seen anteriorly in the lower uter ine segment is consistent with a section scar. The endometrial complex measures 6 mm. The ri ght ovary measures 2.8 x 2.6 x 2.6 cm. The left ovary measures 2.6 x 1.8 x 2.8 cm. There are multiple small follicles of the ovaries which measure up to 11 mm on the right and 14 mm on the left. There i s normal vascular flow in the ovaries. There is no free fluid in the pelvis. IMPRESSION: 1. No sonographic correlate for the patient's symptoms. Reviewed, dictated and finalized at location F.
== END 2022-03-15 14:09 | disposition home or self-care (01) ==
PROVIDERS: Visit Provider Nurse Practitioner
DX: N91.2 Amenorrhea, unspecified (principal)
CPT/HCPCS: 76830; 76856

== ENCOUNTER 2022-03-31 12:35 | Emergency (ER) | payer OTHER, SELFPAY ==
[2022-03-31] VITALS (14 sets, daily range): BP systolic 148–221; BP diastolic 87–132; PULSE 80–99; RESP 15–19; TEMP 37.2; O2SAT 98–100
--- NOTE | 2022-03-31 13:25 | ED.ALLEREA ---
HPI - Allergic Reaction General Chief complaint: Allergic Reaction Stated complaint: Unable to open eyes Time Seen by Provider: 03/31/22 13:17 Source: patient Mode of arrival: ambulatory Limitations: no limitations History of Present Illness HPI narrative: 26 years old white female presents with burning sensation, redness of the face and eyes bilaterally after using new facial wipes to remove her make-up. Patient denies difficulty breathing or swallowing, history of seasonal allergy. Related Data Home Medications Medication Instructions Recorded Confirmed levonorgestrel-ethinyl estrad 1 tablet PO DAILY 11/21/21 01/02/22 [Vienva] Allergies Allergy/AdvReac Type Severity Reaction Status Date / Time bee venom protein (honey bee) Allergy Hives Verified 03/31/22 13:20 [bees] shellfish derived Allergy Swelling Verified 03/31/22 13:20 of Lip/Tongue/Throat Review of Systems Review of Systems: All systems reviewed & are unremarkable except as noted in HPI and below PMFSH Past Medical History Medical History HTN (hypertension) Surgical History Surgical History History of tonsillectomy Hx laparoscopic cholecystectomy 12/14/21 S/P Family History Family History Grandparent Heart disease Chronic obstructive pulmonary disease Diabetes mellitus Father Epilepsia Mother Chronic obstructive pulmonary disease Social History Social History Smoking packs per day: 1.5 Smoking cigarettes per day: 30.0 Years smoked: 3 Smoking pack-years: 4.50 Smoking status: Never smoker Tobacco type: e-cigarettes/vaping Smoking end date: 10/13/21 Additional smoking assessment comments: CURRENTLY VAPING, QUIT CIGARETTES IN SEPTEMBER Alcohol intake: current Alcohol use details: A COUPLE/YEAR Substance use: never Substance use type: does not use Gender identity (if verbalized by the patient): Female Sexual Orientation (if Verbalized by the Patient): Straight or Heterosexual Spiritual care concerns: No Exam Narrative: General appearance: Well-developed, well-nourished Skin: Facial exam showed tiny papular rash, erythema, swelling shining lower lip, normal sized tongue. Head: Normocephalic, nontraumatic Eyes: Conjunctival injection with a lot of tears bilaterally ENT: Oropharynx normal, ears normal, nose normal Neck: Supple, nontender Chest and respiratory: Airway patent, no respiratory distress, no accessory muscle use Heart: Regular rate/rhythm Abdomen: Soft, nontender, no organomegaly, quiet bowel sounds Vascular: Normal peripheral pulses, normal capillary refill. Musculoskeletal: Normal range of motion, nontender back Neurologic: Alert and oriented ?3, Course Course Emergency Course: Stable Contact dermatitis is my concern Vital Signs Vital signs: Vital Signs Temperature 37.2 C 03/31/22 12:41 Pulse Rate 95 03/31/22 12:41 Respiratory Rate 16 03/31/22 12:41 Blood Pressure 169/111 H 03/31/22 12:41 Pulse Oximetry 100 03/31/22 12:41 Temperature 37.2 C 03/31/22 12:41 Pulse Rate 99 03/31/22 13:18 Respiratory Rate 17 03/31/22 13:18 Blood Pressure 205/110 H 03/31/22 13:18 Pulse Oximetry 100 03/31/22 13:18 Discharge Plan Discharge Clinical Impression: Contact dermatitis Qualifiers: Contact dermatitis type: allergic Contact dermatitis trigger: cosmetics Qualified Code(s): L23.2 - Allergic contact dermatitis due to cosmetics Acute allergic conjunctiv
[2022-03-31] MEDS: predniSONE 20 MG TABLET 60 MG PO (13:30)
[2022-03-31] MEDS: EPINEPHrine HCL INJ 1 MG/ML AMPUL 0.3 MG IM (13:30)
[2022-03-31] MEDS: FAMOTIDINE 20 MG TABLET PO (13:30)
[2022-03-31] MEDS: diphenhydrAMINE HCl CAP 25 MG CAPSULE 50 MG PO (13:32)
[2022-03-31] MEDS: cloNIDine HCL 0.1 MG TABLET PO ×3 (14:51→15:56)
--- NOTE | 2022-03-31 14:53 | PC.NURSE ---
Pharmacy, Wilbert aware eye drops needed. Primary RN updated on BP and POC. Dr. Medellin aware of BP and ordered clonidine which has been given.
[2022-03-31] MEDS: OLOPATADINE 0.1% OPHTH SOLN 5 ML BTL 1 DROP EACH EYE (15:31)
== END 2022-03-31 16:44 | disposition home or self-care (01) ==
PROVIDERS: Emergency Provider Emergency Medicine
DX: L23.2 Allergic contact dermatitis due to cosmetics (principal); H10.13 Acute atopic conjunctivitis, bilateral; I10 Essential (primary) hypertension; F17.290 Nicotine dependence, other tobacco product, uncomplicated
CPT/HCPCS: 96372; 99283; A9270; J0171; J7512

== ENCOUNTER 2022-05-21 13:01 | Outpatient (CLI) | payer OTHER, SELFPAY ==
--- NOTE | ~2022-05-21 | US_ITS ---
EXAMINATION: US OB <=14 wk fetus w TV DATE: 05/21/2022 13:48 INDICATION: First trimester dating TECHNIQUE: Real-time pelvic transabdominal and transvaginal ultrasound was performed. COMPARISON: None. FINDINGS: The uterus measures 9.4 x 5.1 x 6.2 cm. There is an intrauterine gestational sac. The feta l pole and yolk sac are not yet identified. The mean sac diameter measures 7 mm , which correlates wi th an estimated gestational age of 5 weeks and 3 day(s) (+/-) 3 day(s). The right ovary measures 2 x 2.3 x 3.2 cm. The left ovary measures 2.1 x 1.1 x 1.1 cm. There is pennie l vascular flow in the ovaries. There is no free fluid in the pelvis. IMPRESSION: 1. Intrauterine fluid collection, likely gestational sac, with an estimated gestational age of 5 week s and 3 day(s) (+/-) 3 day(s) and an estimated delivery date of 01/18/2023 based on mean sac diameter. Reviewed, dictated and finalized at location A. IMPRESSION: 1. Intrauterine fluid collection, likely gestational sac, with an estimated ges tational age of 5 weeks and 3 day(s) (+/-) 3 day(s) and an estimated delivery d ate of 01/18/2023 based on mean sac diameter.
== END 2022-05-21 13:02 | disposition home or self-care (01) ==
PROVIDERS: Visit Provider Advanced Practice Midwife
DX: Z34.91 Encounter for supervision of normal pregnancy, unspecified, first trimester (principal); Z3A.01 Less than 8 weeks gestation of pregnancy
CPT/HCPCS: 76801; 76817

== ENCOUNTER 2022-05-24 11:49 | Outpatient (RCR) | payer OTHER, SELFPAY ==
[2022-05-24] MEDS: RHO(D) IMMUNE GLOBULIN 300 MCG/2 ML SYRINGE IM (15:34)
== END 2022-08-22 23:59 | disposition home or self-care (01) ==
LOC: ANHLAB 11:49
PROVIDERS: Visit Provider Obstetrics & Gynecology Gynecology
DX: Z29.13 Encounter for prophylactic Rho(D) immune globulin (principal); O26.851 Spotting complicating pregnancy, first trimester; O36.0110 Maternal care for anti-D [Rh] antibodies, first trimester, not applicable or unspecified; Z3A.00 Weeks of gestation of pregnancy not specified
CPT/HCPCS: 36415; 84702; 85461; 90384; 96372; J2790

== ENCOUNTER 2022-05-30 10:43 | Outpatient (CLI) | payer OTHER, SELFPAY ==
--- NOTE | ~2022-05-30 | US_ITS ---
CORRECTED REPORT Examination changed to US OB <=14 wk fetus w TV. 05/31/2022 sef EXAMINATION: US OB <=14 wk fetus w TV DATE: 05/30/2022 11:51 INDICATION: First trimester viability assessment TECHNIQUE: Real-time pelvic transabdominal and transvaginal ultrasound was performed. COMPARISON: 05/21/2022 FINDINGS: The uterus measures 9.5 x 5.3 x 6.3 cm. There is an intrauterine gestational sac. A yolk sac is identified. heart motion is difficult to measure due to small gestational size. The crown rump length measures 5 mm , which correlates with an estimated gestational age of 6 weeks and 1 day(s) (+/-) 4 day(s). The left ovary is not visualized however no left adnexal abnormality is seen. The right ovary measures 3.3 x 3.5 x 3.1 cm. There is normal vascular flow in the right ovary. There is no free fluid in the pelvis. IMPRESSION: 1. Live intrauterine with an estimated gestational age of 6 weeks and 1 day(s) (+/-) 4 day(s) and an estimated delivery date of 01/22/2023. Reviewed, dictated and finalized at location B. MTDD
== END 2022-05-30 10:44 | disposition home or self-care (01) ==
PROVIDERS: Visit Provider Obstetrics & Gynecology Gynecology
DX: O36.80X0 Pregnancy with inconclusive fetal viability, not applicable or unspecified (principal); Z3A.01 Less than 8 weeks gestation of pregnancy
CPT/HCPCS: 76801; 76817

== ENCOUNTER 2022-06-10 13:14 | Outpatient (CLI) | payer OTHER, SELFPAY ==
--- NOTE | ~2022-06-10 | US_ITS ---
EXAMINATION: US OB <= 14 weeks fetus DATE: 06/10/2022 14:34 INDICATION: Inconclusive viability. TECHNIQUE: Real-time transabdominal and transvaginal pelvic ultrasound was performed. COMPARISON: Ultrasound 05/30/2022 FINDINGS: TRANSABDOMINAL ULTRASOUND: The uterus measures 9.8 x 5.5 x 6.1 cm. TRANSVAGINAL ULTRASOUND: There is an intrauterine gestational sac with mean diameter of 1.4 cm. No fe ming pole is identified. The prior exam demonstrated a pole measuring 5 mm. The right ovary raisa ures 2.8 x 2.6 x 2.5 cm. The left ovary is not visualized. There is no free fluid in the pelvis. IMPRESSION: 1. demise. Reviewed, dictated and finalized at location A. IMPRESSION: 1. demise.
== END 2022-06-10 13:15 | disposition home or self-care (01) ==
LOC: ANHIMG 13:19
PROVIDERS: Visit Provider Obstetrics & Gynecology Gynecology
DX: O36.80X0 Pregnancy with inconclusive fetal viability, not applicable or unspecified (principal); Z3A.00 Weeks of gestation of pregnancy not specified
CPT/HCPCS: 76801

== ENCOUNTER 2022-06-22 17:05 | Emergency (ER) | payer OTHER, SELFPAY ==
[2022-06-22 17:10] VITALS: BP 200/110; PULSE 132; RESP 20; TEMP 37.2; O2SAT 98
[2022-06-22 17:32] LABS: Basophils Absolute Auto 0.1 K/mm3 (0.0-0.1); Basophils Percent Auto 0.6 % (0.2-1.2); Eosinophils Absolute Auto 0.3 K/mm3 (0-0.3); Eosinophils Percent Auto 3.5 % (0-4.4); Hematocrit 39.6 % (37.0-47.0); Hemoglobin 13.1 g/dL (12.0-15.0); Immature Granulocyte Absolute 0.03 K/mm3 (0.00-0.031); Immature Granulocyte Percent A 0.3 % (0-0.5); Lymphocytes Absolute Auto 2.19 K/mm3 (0.9-3.2); Lymphocytes Percent Auto 24.8 % (18.3-44.2); Mean Corpuscular HGB Conc 33.1 g/dl (32-36); Mean Corpuscular Hemoglobin 28.6 pg (26-34); Mean Corpuscular Volume 86.5 fl (80-100); Mean Platelet Volume 9.8 fl (7.4-10.4); Monocytes Absolute Auto 0.5 K/mm3 (0.1-0.6); Monocytes Percent Auto 5.7 % (2.6-8.5); Neutrophils Absolute Auto 5.8 K/mm3 (1.3-6.7); Neutrophils Percent Auto 65.1 % (45.5-73.1); Platelet Count Result 273 k/mm3 (150-375); Red Blood Count 4.58 M/mm3 (4.2-5.4); Red Cell Distribution Width 12.1 % (11.5-14.5); White Blood Count 8.8 K/mm3 (4.5-10.0)
[2022-06-22] MEDS: SODIUM CHLORIDE 0.9% IV 1,000 ML 999 ML IV CONT ×2 (18:12→20:23)
[2022-06-22 18:32] LABS: Anion Gap 11 mmol/L (8-16); Blood Urea Nitrogen 6 mg/dL (7-17); Calcium 8.5 mg/dL (8.4-10.2); Carbon Dioxide 21 mmol/L (22-30); Chloride 106 mmol/L (98-107); Estimated CRCL calculation 113 ml/min; Estimated Glomerular Filt Rate > 60; Glucose 115 mg/dL (65-110); Potassium 3.3 mmol/L (3.4-5.0); Sodium 138 mmol/L (137-145)
--- NOTE | 2022-06-22 20:01 | ED.GENADULT ---
HPI - General Adult General Chief complaint: Vaginal Bleeding Stated complaint: MISCARRIAGE HEAVY BLEEDING Time Seen by Provider: 06/22/22 17:44 History of Present Illness HPI narrative: Patient is a 18-year-old female who presents ER with vaginal bleeding. Patient was diagnosed with earlier in the month and it did not develop properly. She is scheduled for D&C for this Friday but she began having vaginal bleeding 2 days ago so it was canceled. Began as spotting and was having normal period yesterday. 1 hour prior to arrival here patient started having large amounts of blood from her vagina. She feels lightheaded. No loss of consciousness. She is not on blood thinners. She received RhoGAM on 05/24/2022.. Patient had a ultrasound on 06/11/2022 that showed demise. Related Data Home Medications Medication Instructions Recorded Confirmed labetalol 100 mg tablet 200 mg PO BID 06/18/22 06/18/22 Allergies Allergy/AdvReac Type Severity Reaction Status Date / Time bee venom protein (honey bee) Allergy Hives Verified 06/18/22 17:20 [bees] Review of Systems Review of Systems: All systems reviewed & are unremarkable except as noted in HPI and below Constitutional: Constitutional: Denies chills, Denies fatigue and Denies fever(s) ENT: Denies nasal congestion and Denies sore throat Cardiovascular: Cardiovascular: Denies chest pain, Denies rapid heart rate and Denies radiating jaw, neck or arm pain Gastrointestinal: Gastrointestinal: Reports abdominal pain, Denies nausea and Denies vomiting Genitourinary: Genitourinary: Reports abnormal vaginal bleeding, Denies nocturia and Denies dysuria [facility] Past Medical History Medical History HTN (hypertension) Surgical History Surgical History History of tonsillectomy Hx laparoscopic cholecystectomy 12/14/21 S/P Family History Family History Grandparent Heart disease Chronic obstructive pulmonary disease Diabetes mellitus Father Epilepsia Mother Chronic obstructive pulmonary disease Social History Social History Smoking packs per day: 0.5 Smoking cigarettes per day: 10.0 Years smoked: 6 Smoking pack-years: 3.00 Smoking status: Current every day smoker Tobacco type: cigarettes and e-cigarettes/vaping Smoking end date: 10/13/21 Additional smoking assessment comments: CURRENTLY VAPING, QUIT CIGARETTES IN SEPTEMBER Alcohol intake: never Alcohol use details: A COUPLE/YEAR Substance use: never Substance use type: does not use Gender identity (if verbalized by the patient): Female Sexual Orientation (if Verbalized by the Patient): Straight or Heterosexual Spiritual care concerns: No Exam Narrative: GENERAL: Uncomfortable-appearing, well-nourished, and in no acute distress. HEAD: Normocephalic, atraumatic. ENT: Mucous membranes moist. CHEST: Clear to auscultation. No respiratory distress. HEART: Regular rate and rhythm. Normal peripheral pulses. ABDOMEN: Soft, nontender, nondistended. Pelvic: Clot evacuated from the vagina and residual blood soaked with 4 x 4's. Cervix visualized in a bloodless field and it was closed with scant bright red oozing. EXTREMITIES: Normal range of motion. No edema. SKIN: Warm, dry, no rash. NEURO: Alert and oriented x3. PSYCH: Normal mood and affect. Course Course Emergency Course: Now that bleeding has been cleared from the vagina we will observe the patient for an additional hour to make sure she is not having heavy bleeding. Discussed this plan with Dr. Saba who is on-call and she was in agreement. Should patient have recurrent bleeding she would likely require D&C. Reevaluation(s) Reevaluation #1: Patient did pass a prudent size clot but no additional bleeding. D
--- NOTE | 2022-06-22 20:10 | PC.NURSE ---
unable to do heart tones due to only being 9weeks
[2022-06-22 22:11] VITALS: BP 161/98; PULSE 92; RESP 22; O2SAT 98
== END 2022-06-22 22:12 | disposition home or self-care (01) ==
PROVIDERS: Emergency Medicine; Emergency Provider Emergency Medicine
DX: O03.9 Complete or unspecified spontaneous abortion without complication (principal); I10 Essential (primary) hypertension; F17.290 Nicotine dependence, other tobacco product, uncomplicated
CPT/HCPCS: 36415; 80048; 84702; 85025; 85461; 86880; 96360; 96361; 99284; J7030